=== PATIENT | female | born 1975 | race African-American/Black ===

== ENCOUNTER 2021-02-19 16:38 | Emergency (ER) | payer OTHER, SELFPAY ==
--- NOTE | ~2021-02-19 | CT_ITS ---
EXAMINATION: CT ABDOMEN AND PELVIS WITH CONTRAST CLINICAL INFORMATION: Left upper quadrant mass. COMPARISON: None TECHNIQUE: Multidetector volumetric images were obtained from the superior aspect of the liver through the pubic symphysis following administration 85 mL of Omnipaque 350 intravenous contrast. Sagittal and coronal reformatted images were obtained on the technologist's workstation. Oral Contrast: No. This CT examination was performed using dose optimization techniques as appropriate, variously including the following: *Automated exposure control *Adjustment of mA and/or kV according to patient size (this includes techniques or standardized protocols for targeted exams where dose is matched to indication/reason for exam; i.e. extremities or head) *Use of iterative reconstruction technique DLP: 566 mGy-cm FINDINGS: LUNG BASES: The visualized lung bases are unremarkable. LIVER, GALLBLADDER, AND BILIARY TREE: The liver is normal in size, shape, and attenuation. Subcentimeter right hepatic hypodensity measuring 0.4 cm, too small to characterize. No additional focal hepatic lesion or biliary ductal dilatation is present. The gallbladder is unremarkable with no evidence of radiopaque gallstones, gallbladder wall thickening, or obvious pericholecystic inflammatory changes. PANCREAS: Unremarkable. SPLEEN: Unremarkable. ADRENAL GLANDS: Unremarkable. KIDNEYS AND URETERS: The kidneys are normal in size, shape, and attenuation. No hydronephrosis, hydroureter, or calculi seen. No perinephric stranding. BLADDER: Unremarkable. GASTROINTESTINAL TRACT: No bowel wall thickening or associated inflammatory change. No small or large bowel obstruction. Unremarkable appendix. PERITONEAL CAVITY: No intra-abdominal free air or free fluid. No intra-abdominal mass or organized fluid collection/abscess formation. ABDOMINAL WALL: No significant abdominal wall hernia. No abdominal wall mass or fluid collection. LYMPH NODES: Normal. VASCULAR: Unremarkable. PELVIC VISCERA: Ovoid, enhancing focus within the right uterine fundus measuring up to 3.2 cm, likely representing an uterine fibroid. OSSEOUS STRUCTURES: Unremarkable. CT/CT abdomen pelvis w con IMPRESSION: 1. Probable right uterine fundal fibroid. 2. No additional intra-abdominal mass, lymphadenopathy, or ascites. Fleischner guidelines were followed.
[2021-02-19 16:51] VITALS: BP 125/78; PULSE 87; RESP 18; TEMP 36.7; O2SAT 100; BMI 28.3
--- NOTE | 2021-02-19 17:44 | ED_ITS ---
HPI - General Adult General Chief complaint: General Medical <Melanie Méndez NP - Last Filed: 02/19/21 18:49> Stated complaint: lump under left breast very painful <ABUNDIO Bernardo Last Filed: 02/19/21 18:49> Time Seen by Provider: 02/19/21 17:36 <Melanie Méndez NP - Last Filed: 02/19/21 18:49> Source: patient <Melanie Méndez NP - Last Filed: 02/19/21 18:49> Mode of arrival: ambulatory <ABUNDIO Bernardo Last Filed: 02/19/21 18:49> Limitations: no limitations <Melanie Méndez NP - Last Filed: 02/19/21 18:49> History of Present Illness HPI narrative: 45-year-old female with a history of hypertension here with complaints of swelling and a painful bump to her left upper abdomen noted yesterday while showering. She denies any injury or trauma. She denies any nausea, vomiting, diarrhea, constipation, fevers, chills, urinary symptoms. No recent weight loss or night sweats. She has been having some irregular menses and is followed by a consulting practice director <Melanie Méndez NP - Last Filed: 02/19/21 18:49> Related Data Home medications: Previous Rx's Medication Instructions Recorded cyclobenzaprine 10 mg tablet 10 mg PO BEDTIME PRN #7 tab 02/19/21 naproxen 500 mg tablet 500 mg PO BID PRN #14 tab 02/19/21 <Melanie Méndez NP - Last Filed: 02/19/21 18:49> Allergies/adverse reactions: Allergies Allergy/AdvReac Type Severity Reaction Status Date / Time No Known Allergies Allergy Verified 02/19/21 18:24 <ABUNDIO Bernardo Last Filed: 02/19/21 18:49> Review of Systems Review of Systems: Yes all other systems are reviewed and are negative <ABUNDIO Bernardo Last Filed: 02/19/21 18:49> Constitutional: Constitutional: Reports no additional constitutional complaints, Denies body ache(s), Denies chills, Denies fever(s), Denies headache(s) and Denies weakness <Melanie Méndez NP - Last Filed: 02/19/21 18:49> Eyes: Eyes: Reports no additional eye complaints and Denies change in vision <Melanie Méndez DISABILITY BENEFITS SPECIALIST - Last Filed: 02/19/21 18:49> ENT: Reports system reviewed and no additional complaints, except as documented, Denies dizziness, Denies headache(s), Denies nasal congestion, Denies nasal discharge and Denies neck pain <Melanie Méndez DISABILITY BENEFITS SPECIALIST - Last Filed: 02/19/21 18:49> Cardiovascular: Cardiovascular: Reports no additional cardiovascular complaints, Denies chest pain, Denies leg edema and Denies dyspnea <Melanie Méndez DISABILITY BENEFITS SPECIALIST - Last Filed: 02/19/21 18:49> Respiratory: Respiratory: Reports no additional respiratory complaints, Denies cough and Denies dyspnea <Melanie Méndez DISABILITY BENEFITS SPECIALIST - Last Filed: 02/19/21 18:49> Gastrointestinal: Gastrointestinal: Reports no additional gastrointestinal complaints, Denies abdominal pain, Denies diarrhea, Denies nausea and Denies vomiting <Melanie Méndez DISABILITY BENEFITS SPECIALIST - Last Filed: 02/19/21 18:49> Genitourinary: Genitourinary: Reports no additional female genitourinary complaints and Denies urinary incontinence <Melanie Méndez DISABILITY BENEFITS SPECIALIST - Last Filed: 02/19/21 18:49> Musculoskeletal: Musculoskeletal: Reports no additional musculoskeletal complaints, Denies back pain, Denies arthralgias, Denies joint swelling, Denies neck pain, Denies numbness and Denies tingling <Melanie Méndez DISABILITY BENEFITS SPECIALIST - Last Filed: 02/19/21 18:49> Integumentary/Breasts: Skin/Breast: Reports system reviewed and no additional complaints, except as docu, Reports swelling and Denies rash <Melanie Méndez DISABILITY BENEFITS SPECIALIST - Last Filed: 02/19/21 18:49> Neurologic: Reports system reviewed and no additional complaints, except as documented, Denies Abnormal speech present, Denies dizziness, Denies headache(s), Denies numbness, Denies tingling and Denies weakness <Melanie Méndez NP - Last Filed: 02/19/21 18:49> FOR[facility]LY [facility] Past Medical History Attestation statement: The following information was validated with the patient. <Melanie Méndez NP - Last Filed: 02/19/21 18:49> Source: old records reviewed and nursing notes reviewed <Melanie Méndez NP - Last Filed: 02/19/21 18:49> Social History Social History: Social History Advance Directives: No Advance Directives Information Provided: No <Melanie Méndez NP - Last Filed: 02/19/21 18:49> Physical Exam Vital Signs: Vital Signs: Last Vital Signs Temp 98.1 F 02/19/21 18:55 Pulse 78 02/19/21 18:55 Resp 18 02/19/21 18:55 BP 120/69 02/19/21 18:55 Pulse Ox 100 02/19/21 18:55 BMI result Body Mass Index 28.3 <Melanie Méndez NP - Last Filed: 02/19/21 18:49> Vital Signs: Last Vital Signs Temp 98.1 F 02/19/21 18:55 Pulse 78 02/19/21 18:55 Resp 18 02/19/21 18:55 BP 120/69 02/19/21 18:55 Pulse Ox 100 02/19/21 18:55 BMI result Body Mass Index 28.3 <TARAN Mera - Last Filed: 02/19/21 20:27> Const: General: cooperative, healthy appearing, comfortable and no acute distress <Melanie Méndez NP - Last Filed: 02/19/21 18:49> Orientation/consciousness: patient oriented x3 <Melanie Méndez NP - Last Filed: 02/19/21 18:49> Limitations: no limitations <Melanie Méndez NP - Last Filed: 02/19/21 18:49> HENMT: Head: Yes normal to inspection <Melanie Méndez NP - Last Filed: 02/19/21 18:49> Ears: hearing grossly normal bilaterally <Melanie Méndez NP - Last Filed: 02/19/21 18:49> General nose exam: Normal external nose present <Melanie Méndez NP - Last Filed: 02/19/21 18:49> Face and sinus: Yes normal facial exam <Melanie Méndez NP - Last Filed: 02/19/21 18:49> Mouth: Normal oral and palatal mucosa present <Melanie Méndez NP - Last F iled: 02/19/21 18:49> Throat: Yes posterior oropharynx normal <Melanie Méndez DISABILITY BENEFITS SPECIALIST - Last Filed: 02/19/21 18:49> Eyes: General: appearance normal, both eyes and all related structures <Melanie Méndez NP - Last Filed: 02/19/21 18:49> Pupils: Equal, round and reactive pupils present <Melanie Méndez DISABILITY BENEFITS SPECIALIST - Last Filed: 02/19/21 18:49> Neck: Neck: Yes normal visual inspection <Melanie Méndez NP - Last Filed: 02/19/21 18:49> Chest: Chest palpation & inspection: normal inspection of the chest <Melanie Méndez NP - Last Filed: 02/19/21 18:49> Resp: Effort & Inspection: normal respiratory effort <Melanie Méndez NP - Last Filed: 02/19/21 18:49> Auscultation: clear to auscultation bilaterally <Melanie Méndez NP - Last Filed: 02/19/21 18:49> Cardio: Rate: regular rate <Melanie Méndez DISABILITY BENEFITS SPECIALIST - Last Filed: 02/19/21 18:49> Rhythm: regular rhythm <Melanie Méndez NP - Last Filed: 02/19/21 18:49> Peripheral pulses: Peripheral pulses 2+ throughout <Melanie Méndez NP - Last Filed: 02/19/21 18:49> GI: Inspection: Yes normal to inspection <Melanie Méndez NP - Last Filed: 02/19/21 18:49> Palpation (GI): Soft to palpation and Tenderness to palpation present (GI) (Left upper quadrant mass with some tenderness on exam. No warmth or redness) <Melanie Méndez NP - Last Filed: 02/19/21 18:49> Auscultation: normal bowel sounds <Melanie Méndez NP - Last Filed: 02/19/21 18:49> Back/Spine/Pelvis: Thoracic/Lumbar Spine: thoracic and lumbar spine normal to inspection <Melanie Méndez NP - Last Filed: 02/19/21 18:49> Skin: General skin exam: no rashes or lesions noted <Melanie Méndez NP - Last Filed: 02/19/21 18:49> Neuro: General: patient oriented x3, no focal motor deficits and normal sensation to monofilament <Melanie Méndez NP - Last Filed: 02/19/21 18:49> Cranial nerves: Yes Equal, round and reactive pupils present <Melanie benitez NP - Last Filed: 02/19/21 18:49> Cognition (Neuro): normal cognition <Melanie Méndez NP - Last Filed: 02/19/21 18:49> Speech: No Abnormal speech present <Melanie Méndez NP - Last Filed: 02/19/21 18:49> Gait exam (Neuro): Normal gait present <Melanie Méndez NP - Last Filed: 02/19/21 18:49> Motor exam (neuro): 5/5 motor strength present throughout <Melanie Méndez NP - Last Filed: 02/19/21 18:49> Extrem: General: Yes normal to inspection <Melanie Méndez NP - Last Filed: 02/19/21 18:49> Course Course Course Narrative: 45-year-old female here with reports of left upper quadrant abdominal mass noted yesterday with some tenderness. No other complaints. Will check labs, UA, CT 1845-Sign out to Maggi CHIRINOS pending CT A/P <Melanie Méndez NP - Last Filed: 02/19/21 18:49> Reevaluation(s) Reevaluation #1: Labs shows slight leukocytosis 12.6, microcytic anemia noted, no electrolyte abnormalities, UA without infection. Patient's anemia is likely secondary to a bleeding fibroid which patient is currently getting treatment for. Patient is going to start taking her iron pills again, and she will follow-up with OBGYN. Leukocytosis likely secondary to reactivity, no medical or surgical emergent etiologies. CT of the abdomen and pelvis shows a probable right uterine fundal fibroid, with no additional intra-abdominal masses, lymphadenopathy or ascites. I have advised patient to follow-up with her PCP for further evaluation of this lump. Patient is safe for discharge home with PCP follow-up. <TARAN Mera - Last Filed: 02/19/21 20:27> Time: 20:14 <TARAN Mera - Last Filed: 02/19/21 20:27> Medical Decision Making Medical Records Medical records reviewed: Yes I reviewed the patient's medical records. <Melanie Méndez NP - Last Filed: 02/19/21 18:49> Lab Data Lab results reviewed: Yes I reviewed the patient's lab results. <Melanie Méndez NP - Last Filed: 02/19/21 18:49> Result diagrams: : 02/19/21 18:03 02/19/21 18:03 <Melanie Méndez NP - Last Filed: 02/19/21 18:49> Labs: Lab Results 02/19/21 02/19/21 02/19/21 Range/Units 18:03 18:03 18:04 WBC 12.6 H (4.8-10.8) X10*3/uL RBC 4.25 (4.20-5.50) X10*6/uL Hgb 10.7 L (12.0-16.0) g/dl Hct 33.5 L (37.0-47.0) % MCV 78.8 L (80.0-98.0) fL MCH 25.2 L (27.0-33.0) pg MCHC 31.9 (31.0-35.0) g/dl RDW 15.3 (11.0-16.0) % Plt Count 372 (160-400) X10*3/uL MPV 10.1 (9.4-12.3) fL Immature Gran % (Auto) 0.3 (0.0-0.4) % Neut % (Auto) 55.0 (45-73) % Lymph % (Auto) 33.0 (20-40) % [place] % (Auto) 9.2 (2-11) % Eos % (Auto) 2.1 (0-4) % Baso % (Auto) 0.4 (0-2) % Lymph # (Auto) 4.1 (1.2-4.9) X10*3/uL [place] # (Auto) 1.2 (0.1-1.2) X10*3/uL Eos # (Auto) 0.3 (0.0-0.4) X10*3/uL Baso # (Auto) 0.1 (0.0-0.2) X10*3/uL Abs Immat Gran (auto) 0.04 H (0.00-0.03) X10*3/uL Absolute Neuts (auto) 6.9 (2.0-8.3) x10*3/uL Absolute Nucleated RBC 0.000 (0.0-0.012) X10*3/uL Nucleated RBC % (auto) 0.0 (0.0-0.2) /100WBC Sodium 141 (135-145) mmol/L Potassium 3.7 (3.3-5.1) mmol/L Chloride 107 (96-108) mmol/L Carbon Dioxide 26 (22-29) mmol/L Anion Gap 12 (12-20) BUN 12 (9-16) mg/dL Creatinine 0.81 (0.5-1.4) mg/dL Estim Creat Clear Calc 91.9 Estimated GFR > 60 Random Glucose 79 (60-115) mg/dL Calcium 9.4 (8.4-10.2) mg/dL Total Bilirubin 0.2 (0.0-1.0) mg/dL Direct Bilirubin < 0.2 (0.0-0.5) mg/dL AST 21 (5-31) U/L ALT 23 (0-31) U/L Alkaline Phosphatase 80 (39-117) U/L Total Protein 6.8 (6.5-8.0) g/dL Albumin 3.9 (3.5-5.0) g/dL Lipase 34 (8-78) U/L Urine Color YELLOW Urine Appearance CLEAR Urine pH 6.0 (5.0-8.0) Ur Specific [place] 1.020 (1.005-1.025) Urine Protein 1+ H (NEG-TRACE) MG/DL Urine Glucose (UA) NEG (NEG) MG/DL Urine Ketones NEG (NEG) MG/DL Urine Blood TRACE (NEG) Urine Nitrite NEG (NEG) Ur Leukocyte Esterase NEG (NEG) Urine RBC 0-2 (0) /HPF Urine WBC 0 (0-4) /HPF Ur Squamous Epith Cells 1+ /LPF Urine Bacteria TRACE /LPF Urine Mucus 1+ /LPF Urine Test (NEGATIVE) 02/19/21 Range/Units 18:04 WBC (4.8-10.8) X10*3/uL RBC (4.20-5.50) X10*6/uL Hgb (12.0-16.0) g/dl Hct (37.0-47.0) % MCV (80.0-98.0) fL MCH (27.0-33.0) pg MCHC (31.0-35.0) g/dl RDW (11.0-16.0) % Plt Count (160-400) X10*3/uL MPV (9.4-12.3) fL Immature Gran % (Auto) (0.0-0.4) % Neut % (Auto) (45-73) % Lymph % (Auto) (20-40) % [place] % (Auto) (2-11) % Eos % (Auto) (0-4) % Baso % (Auto) (0-2) % Lymph # (Auto) (1.2-4.9) X10*3/uL [place] # (Auto) (0.1-1.2) X10*3/uL Eos # (Auto) (0.0-0.4) X10*3/uL Baso # (Auto) (0.0-0.2) X10*3/uL Abs Immat Gran (auto) (0.00-0.03) X10*3/uL Absolute Neuts (auto) (2.0-8.3) x10*3/uL Absolute Nucleated RBC (0.0-0.012) X10*3/uL Nucleated RBC % (auto) (0.0-0.2) /100WBC Sodium (135-145) mmol/L Potassium (3.3-5.1) mmol/L Chloride (96-108) mmol/L Carbon Dioxide (22-29) mmol/L Anion Gap (12-20) BUN (9-16) mg/dL Creatinine (0.5-1.4) mg/dL Estim Creat Clear Calc Estimated GFR Random Glucose (60-115) mg/dL Calcium (8.4-10.2) mg/dL Total Bilirubin (0.0-1.0) mg/dL Direct Bilirubin (0.0-0.5) mg/dL AST (5-31) U/L ALT (0-31) U/L Alkaline Phosphatase (39-117) U/L Total Protein (6.5-8.0) g/dL Albumin (3.5-5.0) g/dL Lipase (8-78) U/L Urine Color Urine Appearance Urine pH (5.0-8.0) Ur Specific [place] (1.005-1.025) Urine Protein (NEG-TRACE) MG/DL Urine Glucose (UA) (NEG) MG/DL Urine Ketones (NEG) MG/DL Urine Blood (NEG) Urine Nitrite (NEG) Ur Leukocyte Esterase (NEG) Urine RBC (0) /HPF Urine WBC (0-4) /HPF Ur Squamous Epith Cells /LPF Urine Bacteria /LPF Urine Mucus /LPF Urine Test NEGATIVE (NEGATIVE) <Melanie Méndez NP - Last Filed: 02/19/21 18:49> Lab Results 02/19/21 02/19/21 02/19/21 Range/Units 18:03 18:03 18:04 WBC 12.6 H (4.8-10.8) X10*3/uL RBC 4.25 (4.20-5.50) X10*6/uL Hgb 10.7 L (12.0-16.0) g/dl Hct 33.5 L (37.0-47.0) % MCV 78.8 L (80.0-98.0) fL MCH 25.2 L (27.0-33.0) pg MCHC 31.9 (31.0-35.0) g/dl RDW 15.3 (11.0-16.0) % Plt Count 372 (160-400) X10*3/uL MPV 10.1 (9.4-12.3) fL Immature Gran % (Auto) 0.3 (0.0-0.4) % Neut % (Auto) 55.0 (45-73) % Lymph % (Auto) 33.0 (20-40) % [place] % (Auto) 9.2 (2-11) % Eos % (Auto) 2.1 (0-4) % Baso % (Auto) 0.4 (0-2) % Lymph # (Auto) 4.1 (1.2-4.9) X10*3/uL [place] # (Auto) 1.2 (0.1-1.2) X10*3/uL Eos # (Auto) 0.3 (0.0-0.4) X10*3/uL Baso # (Auto) 0.1 (0.0-0.2) X10*3/uL Abs Immat Gran (auto) 0.04 H (0.00-0.03) X10*3/uL Absolute Neuts (auto) 6.9 (2.0-8.3) x10*3/uL Absolute Nucleated RBC 0.000 (0.0-0.012) X10*3/uL Nucleated RBC % (auto) 0.0 (0.0-0.2) /100WBC Sodium 141 (135-145) mmol/L Potassium 3.7 (3.3-5.1) mmol/L Chloride 107 (96-108) mmol/L Carbon Dioxide 26 (22-29) mmol/L Anion Gap 12 (12-20) BUN 12 (9-16) mg/dL Creatinine 0.81 (0.5-1.4) mg/dL Estim Creat Clear Calc 91.9 Estimated GFR > 60 Random Glucose 79 (60-115) mg/dL Calcium 9.4 (8.4-10.2) mg/dL Total Bilirubin 0.2 (0.0-1.0) mg/dL Direct Bilirubin < 0.2 (0.0-0.5) mg/dL AST 21 (5-31) U/L ALT 23 (0-31) U/L Alkaline Phosphatase 80 (39-117) U/L Total Protein 6.8 (6.5-8.0) g/dL Albumin 3.9 (3.5-5.0) g/dL Lipase 34 (8-78) U/L Urine Color YELLOW Urine Appearance CLEAR Urine pH 6.0 (5.0-8.0) Ur Specific [place] 1.020 (1.005-1.025) Urine Protein 1+ H (NEG-TRACE) MG/DL Urine Glucose (UA) NEG (NEG) MG/DL Urine Ketones NEG (NEG) MG/DL Urine Blood TRACE (NEG) Urine Nitrite NEG (NEG) Ur Leukocyte Esterase NEG (NEG) Urine RBC 0-2 (0) /HPF Urine WBC 0 (0-4) /HPF Ur Squamous Epith Cells 1+ /LPF Urine Bacteria TRACE /LPF Urine Mucus 1+ /LPF Urine Test (NEGATIVE) 02/19/21 Range/Units 18:04 WBC (4.8-10.8) X10*3/uL RBC (4.20-5.50) X10*6/uL Hgb (12.0-16.0) g/dl Hct (37.0-47.0) % MCV (80.0-98.0) fL MCH (27.0-33.0) pg MCHC (31.0-35.0) g/dl RDW (11.0-16.0) % Plt Count (160-400) X10*3/uL MPV (9.4-12.3) fL Immature Gran % (Auto) (0.0-0.4) % Neut % (Auto) (45-73) % Lymph % (Auto) (20-40) % [place] % (Auto) (2-11) % Eos % (Auto) (0-4) % Baso % (Auto) (0-2) % Lymph # (Auto) (1.2-4.9) X10*3/uL [place] # (Auto) (0.1-1.2) X10*3/uL Eos # (Auto) (0.0-0.4) X10*3/uL Baso # (Auto) (0.0-0.2) X10*3/uL Abs Immat Gran (auto) (0.00-0.03) X10*3/uL Absolute Neuts (auto) (2.0-8.3) x10*3/uL Absolute Nucleated RBC (0.0-0.012) X10*3/uL Nucleated RBC % (auto) (0.0-0.2) /100WBC Sodium (135-145) mmol/L Potassium (3.3-5.1) mmol/L Chloride (96-108) mmol/L Carbon Dioxide (22-29) mmol/L Anion Gap (12-20) BUN (9-16) mg/dL Creatinine (0.5-1.4) mg/dL Estim Creat Clear Calc Estimated GFR Random Glucose (60-115) mg/dL Calcium (8.4-10.2) mg/dL Total Bilirubin (0.0-1.0) mg/dL Direct Bilirubin (0.0-0.5) mg/dL AST (5-31) U/L ALT (0-31) U/L Alkaline Phosphatase (39-117) U/L Total Protein (6.5-8.0) g/dL Albumin (3.5-5.0) g/dL Lipase (8-78) U/L Urine Color Urine Appearance Urine pH (5.0-8.0) Ur Specific [place] (1.005-1.025) Urine Protein (NEG-TRACE) MG/DL Urine Glucose (UA) (NEG) MG/DL Urine Ketones (NEG) MG/DL Urine Blood (NEG) Urine Nitrite (NEG) Ur Leukocyte Esterase (NEG) Urine RBC (0) /HPF Urine WBC (0-4) /HPF Ur Squamous Epith Cells /LPF Urine Bacteria /LPF Urine Mucus /LPF Urine Test NEGATIVE (NEGATIVE) <TARAN Mera - Last Filed: 02/19/21 20:27> Critical Care Time Critical Care Time Critical Care Time: No <TARAN Mera - Last Filed: 02/19/21 20:27> Discharge Plan Discharge Clinical Impression: Abdominal swelling, Abdominal lump <Melanie Méndez NP - Last Filed: 02/19/21 18:49> Patient Disposition: Home, Self-Care <Melanie Méndez NP - Last Filed: 02/19/21 18:49> Additional Instructions: Take your medications as prescribed. Follow-up with your primary care provider this week. You will likely require further evaluation Return to the emergency department with new or worsening symptoms. In case of emergency call 911 <Melanie Méndez NP - Last Filed: 02/19/21 18:49> Prescriptions: New cyclobenzaprine 10 mg tablet 10 mg PO BEDTIME PRN (Reason: muscle spasm) Qty: 7 RF: 0 naproxen 500 mg tablet 500 mg PO BID PRN (Reason: pain) Qty: 14 RF: 0 <Melanie Méndez NP - Last Filed: 02/19/21 18:49> Referrals: Maximilian King MD [Primary Care Provider] - 2 days Panfilo Grayson MD [Physician] - 2 weeks <Melanie Méndez NP - Last Filed: 02/19/21 18:49> Stand Alone Forms: Work/School Release <Melanie Méndez NP - Last Filed: 02/19/21 18:49>
[2021-02-19 18:12] LABS: MANUAL DIFF FLAG NO
[2021-02-19 18:15] LABS: Appearance Urine CLEAR; Color Urine YELLOW; Glucose Urine UA NEG (NEG); Leukocyte Esterase Urine NEG (NEG); Nitrite Urine NEG (NEG); UACC Culture Trigger NO; Urine Blood TRACE (NEG); Urine Ketones NEG (NEG); Urine Protein 1+ MG/DL (NEG-TRACE)
[2021-02-19 18:17] LABS: UPreg QC Valid YES; Urine Pregnancy NEGATIVE (NEGATIVE)
[2021-02-19 18:19] LABS: Basophils Absolute Auto 0.1 X10*3/uL (0.0-0.2); Basophils Percent Auto 0.4 % (0-2); Eosinophils Absolute Auto 0.3 X10*3/uL (0.0-0.4); Eosinophils Percent Auto 2.1 % (0-4); Hematocrit 33.5 % (37.0-47.0); Hemoglobin 10.7 g/dl (12.0-16.0); Imm Gran Abs Auto 0.04 X10*3/uL (0.00-0.03); Imm Gran Pct Auto 0.3 % (0.0-0.4); Lymphocytes Absolute Auto 4.1 X10*3/uL (1.2-4.9); Mean Corpuscular HGB Conc 31.9 g/dl (31.0-35.0); Mean Corpuscular Hemoglobin 25.2 pg (27.0-33.0); Mean Corpuscular Volume 78.8 fL (80.0-98.0); Mean Platelet Volume 10.1 fL (9.4-12.3); Monocytes Absolute Auto 1.2 X10*3/uL (0.1-1.2); Monocytes Percent Auto 9.2 % (2-11); Neutrophils Absolute Auto 6.9 x10*3/uL (2.0-8.3); Platelet Count 372 X10*3/uL (160-400); Red Blood Count 4.25 X10*6/uL (4.20-5.50); Red Cell Distribution Width 15.3 % (11.0-16.0); White Blood Count 12.6 X10*3/uL (4.8-10.8)
[2021-02-19 18:23] LABS: Mucus Urine 1+ /LPF; Squamous Epithelial Cell Urine 1+ /LPF
[2021-02-19 18:24] LABS: Bacteria Urine TRACE /LPF; RBC Urine 0-2 /HPF (0); WBC Urine 0 /HPF (0-4)
[2021-02-19 18:28] LABS: Alanine Aminotransferase 23 U/L (0-31); Albumin Level 3.9 g/dL (3.5-5.0); Alkaline Phosphatase 80 U/L (39-117); Anion Gap 12 (12-20); Aspartate Amino Transferase 21 U/L (5-31); Bilirubin Direct < 0.2 mg/dL (0.0-0.5); Bilirubin Total 0.2 mg/dL (0.0-1.0); Blood Urea Nitrogen 12 mg/dL (9-16); Calcium 9.4 mg/dL (8.4-10.2); Carbon Dioxide 26 mmol/L (22-29); Chloride 107 mmol/L (96-108); Creatinine Clr Calc Pharmacy 91.9; Estimated Glomerular Filt Rate > 60; Glucose Random 79 mg/dL (60-115); Lipase 34 U/L (8-78); Potassium 3.7 mmol/L (3.3-5.1); Sodium 141 mmol/L (135-145); Total Protein 6.8 g/dL (6.5-8.0)
[2021-02-19] MEDS: iohexoL 350 MG/ML 100 ML INFUS..BTL IV (18:48)
[2021-02-19 18:55] VITALS: BP 120/69; PULSE 78; RESP 18; TEMP 36.7; O2SAT 100
== END 2021-02-19 20:39 | disposition home or self-care (01) ==
PROVIDERS: Nurse Practitioner Family; Emergency Provider Internal Medicine; PCP Internal Medicine
DX: R19.02 Left upper quadrant abdominal swelling, mass and lump (principal); R10.12 Left upper quadrant pain; I10 Essential (primary) hypertension
CPT/HCPCS: 36415; 74177; 80048; 80076; 81001; 81025; 83690; 85025; 99284; Q9967

== ENCOUNTER 2022-06-10 12:26 | Emergency (ER) | payer SELFPAY ==
--- NOTE | ~2022-06-10 | XR_ITS ---
EXAMINATION: Chest and right shoulder. CLINICAL INDICATION: Right upper chest pain. TECHNIQUE: Chest 2 views and right shoulder 3 views. FINDINGS: CHEST: CHEST: Both lungs are fairly well-expanded and clear. The heart size and pulmonary vascularity is normal. No gross bony abnormality seen. RIGHT SHOULDER: The glenohumeral and AC joint space is maintained normal. No visible acute fracture, dislocation or subluxation seen. The soft tissues are normal. XR/XR shoulder RT min 2V IMPRESSION: Unremarkable chest exam. Unremarkable right shoulder exam
--- NOTE | ~2022-06-10 | XR_ITS ---
EXAMINATION: Chest and right shoulder. CLINICAL INDICATION: Right upper chest pain. TECHNIQUE: Chest 2 views and right shoulder 3 views. FINDINGS: CHEST: CHEST: Both lungs are fairly well-expanded and clear. The heart size and pulmonary vascularity is normal. No gross bony abnormality seen. RIGHT SHOULDER: The glenohumeral and AC joint space is maintained normal. No visible acute fracture, dislocation or subluxation seen. The soft tissues are normal. XR/XR chest 2V IMPRESSION: Unremarkable chest exam. Unremarkable right shoulder exam
[2022-06-10 12:27] VITALS: BP 159/92; PULSE 100; RESP 18; TEMP 36.9; O2SAT 99; BMI 30.5
--- NOTE | 2022-06-10 12:28 | ED.EXTPRO ---
HPI - Extremity Problem General Chief complaint: Extremity Problem <TARAN Mera - Last Filed: 06/10/22 12:30> Stated complaint: R shoulder pain <TARAN Mera - Last Filed: 06/10/22 12:30> Time Seen by Provider: 06/10/22 12:30 <TARAN Mera - Last Filed: 06/10/22 12:30> Source: patient <Brock Hernandez MD - Last Filed: 06/10/22 13:59> Mode of arrival: ambulatory <Brock Hernandez MD - Last Filed: 06/10/22 13:59> Limitations: no limitations <Brock Hernandez MD - Last Filed: 06/10/22 13:59> History of Present Illness HPI Narrative: 46 years old female presented to the ED complaining of right shoulder pain denies any trauma the pain is been going on for about 3 days , the pain is reproducible with movement of the right shoulder. Denies any chest pain or shortness of breath <Brock Hernandez MD - Last Filed: 06/10/22 13:59> MD Complaint: extremity pain <Brock Hernandez MD - Last Filed: 06/10/22 13:59> Onset (ago): day(s) (3) <Brock Hernandez MD - Last Filed: 06/10/22 13:59> Pain Consistency: constant <Brock Hernandez MD - Last Filed: 06/10/22 13:59> Location: right and other (shoulder) <Brock Hernandez MD - Last Filed: 06/10/22 13:59> Severity scale (1-10): 5 <Brock Hernandez MD - Last Filed: 06/10/22 13:59> Quality: aching <Brock Hernandez MD - Last Filed: 06/10/22 13:59> Radiation: none <Brock Hernandez MD - Last Filed: 06/10/22 13:59> Relieving factors: rest <Brock Hernandez MD - Last Filed: 06/10/22 13:59> Exacerbating factors: range of motion <Brock Hernandez MD - Last Filed: 06/10/22 13:59> Associated symptoms: denies other symptoms <Brock Hernandez MD - Last Filed: 06/10/22 13:59> Related Data Home medications: Previous Rx's Medication Instructions Recorded cyclobenzaprine 10 mg tablet 10 mg PO BEDTIME PRN muscle spasm 02/19/21 #7 tabs naproxen 500 mg tablet 500 mg PO BID PRN pain #14 tabs 02/19/21 oxycodone 5 mg capsule 5 mg PO Q8H PRN pain #12 caps 06/10/22 <TARAN Mera - Last Filed: 06/10/22 12:30> Allergies/Adverse reactions: Allergies Allergy/AdvReac Type Severity Reaction Status Date / Time No Known Allergies Allergy Verified 02/19/21 18:24 <TARAN Mera - Last Filed: 06/10/22 12:30> Review of Systems Constitutional: Constitutional: Reports no additional constitutional complaints <Brock Hernandez MD - Last Filed: 06/10/22 13:59> Cardiovascular: Cardiovascular: Reports no additional cardiovascular complaints <Brock Hernandez MD - Last Filed: 06/10/22 13:59> Respiratory: Respiratory: Reports no additional respiratory complaints <Brock Hernandez MD - Last Filed: 06/10/22 13:59> [facility] Past Medical History [facility] Narrative: denies <Brock Hernandez MD - Last Filed: 06/10/22 13:59> Social History Social History: Social History Advance Directives: No Advance Directives Information Provided: No <TARAN Mera - Last Filed: 06/10/22 12:30> Physical Exam Vital Signs: Vital Signs: Last Vital Signs Temp 98.4 F 06/10/22 12:27 Pulse 100 06/10/22 12:27 Resp 18 06/10/22 12:27 BP 159/92 H 06/10/22 12:27 Pulse Ox 99 06/10/22 12:27 O2 Del Method Room Air 06/10/22 12:27 BMI result Body Mass Index 30.5 <TARAN Mera - Last Filed: 06/10/22 12:30> Vital Signs: Last Vital Signs Temp 98.4 F 06/10/22 12:27 Pulse 100 06/10/22 12:27 Resp 18 06/10/22 12:27 BP 159/92 H 06/10/22 12:27 Pulse Ox 99 06/10/22 12:27 O2 Del Method Room Air 06/10/22 12:27 BMI result Body Mass Index 30.5 <Brock Hernandez MD - Last Filed: 06/10/22 13:59> Const: General: cooperative, healthy appearing, comfortable, no acute distress and well developed <Brock Hernandez MD - Last Filed: 06/10/22 13:59> Nutritional Appearance: average body habitus <Brock Hernandez MD - Last Filed: 06/10/22 13:59> Orientation/consciousness: patient oriented x3 <Brock Hernandez MD - Last Filed: 06/10/22 13:59> HEENT: Head: Yes normal to inspection <Brock Hernandez MD - Last Filed: 06/10/22 13:59> Face and sinus: Yes normal facial exam <Brock Hernandez MD - Last Filed: 06/10/22 13:59> Throat: Yes posterior oropharynx normal <Brock Hernandez MD - Last Filed: 06/10/22 13:59> Neck: Neck: Yes normal visual inspection and Yes full ROM <Brock Hernandez MD - Last Filed: 06/10/22 13:59> Chest: Chest palpation & inspection: normal inspection of the chest <Brock Hernandez MD - Last Filed: 06/10/22 13:59> Resp: Effort & Inspection: normal respiratory effort and able to speak in complete sentences <Brock Hernandez MD - Last Filed: 06/10/22 13:59> Cardio: Jugular venous distension: no JVD <Brock Hernandez MD - Last Filed: 06/10/22 13:59> Rate: regular rate <Brock Hernandez MD - Last Filed: 06/10/22 13:59> Rhythm: regular rhythm <Brock Hernandez MD - Last Filed: 06/10/22 13:59> GI: Inspection: Yes normal to inspection <Brock Hernandez MD - Last Filed: 06/10/22 13:59> Palpation (GI): Soft to palpation, not firm, nontender and no guarding <Brock Hernandez MD - Last Filed: 06/10/22 13:59> Skin: General skin exam: no rashes or lesions noted and elasticity normal <Brock Hernandez MD - Last Filed: 06/10/22 13:59> Lesions: no lesions <Brock Hernandez MD - Last Filed: 06/10/22 13:59> Rashes: no rashes <Brock Hernandez MD - Last Filed: 06/10/22 13:59> Neuro: General: patient oriented x3 <Brock Hernandez MD - Last Filed: 06/10/22 13:59> Extrem: Other: Tenderness in the right shoulder she has pain the limitation of the range of motion no deformity seen. <Brock Hernandez MD - Last Filed: 06/10/22 13:59> Course Course Course Narrative: This is an RME: Additional HPI, ROS, PE not included below will be deferred to primary provider. 46 year old female presents w/ severe atraumatic R shoulder pain. Reports it started as an aching pain and now is unable to lift it due to pain. Denies numbness and tingling. Denies fevers and chills. PE- NV intact, unwilling to lift right shoulder because it hurts Plan- imaging. Toradol orderd <TARAN Mera - Last Filed: 06/10/22 12:30> Reevaluation(s) Reevaluation #1: xray negative ekg ok will d/c <Brock Hernandez MD - Last Filed: 06/10/22 13:59> Time: 13:57 <Brock Hernandez MD - Last Filed: 06/10/22 13:59> Medications Administered Discontinued Medications Generic Name Dose Route Start Last Admin Trade Name Freq PRN Reason Stop Dose Admin Ketorolac Tromethamine 30 mg 06/10/22 12:30 06/10/22 13:11 Ketorolac Tromethamine 15 Mg/Ml Vial IM 06/10/22 12:31 30 mg ONCE ONE Administration <TARAN Mera - Last Filed: 06/10/22 12:30> Medications Administered Discontinued Medications Generic Name Dose Route Start Last Admin Trade Name Adarsh PRN Reason Stop Dose Admin Ketorolac Tromethamine 30 mg 06/10/22 12:30 06/10/22 13:11 Ketorolac Tromethamine 15 Mg/Ml Vial IM 06/10/22 12:31 30 mg ONCE ONE Administration <Brock Hernandez MD - Last Filed: 06/10/22 13:59> Medical Decision Making Medical Decision Making MDM Narrative: Patient presents with right shoulder pain which is reproducible with movement will get x-ray/EKG <Brock Hernandez MD - Last Filed: 06/10/22 13:59> Differential Diagnosis Differential Diagnoses: The differential diagnosis associated with the presentation includes <Brock Hernandez MD - Last Filed: 06/10/22 13:59> Tendinitis/cuff tear <Brock Hernandez MD - Last Filed: 06/10/22 13:59> Independent Interpretation I performed an independent interpretation of an: EKG (NSR 89 no ischemia) and Plain X-Ray <Brock Hernandez MD - Last Filed: 06/10/22 13:59> Radiology Impression Discussion of test interpretation with radiology: I have reviewed the radiologist's reading. <Brock Hernandez MD - Last Filed: 06/10/22 13:59> Radiologist Impression: CLINICAL INDICATION: Right upper chest pain. TECHNIQUE: Chest 2 views and right shoulder 3 views. FINDINGS: CHEST: CHEST: Both lungs are fairly well-expanded and clear. The heart size and pulmonary vascularity is normal. No gross bony abnormality seen. RIGHT SHOULDER: The glenohumeral and AC joint space is maintained normal. No visible acute fracture, dislocation or subluxation seen. The soft tissues are normal. XR/XR shoulder RT min 2V IMPRESSION: Unremarkable chest exam. ? Unremarkable right shoulder exam Dictated By: Kamran Corona MD Signed By: <Electronically signed by Kamran Corona MD in [place]> 06/10/22 1337 <Brock Hernandez MD - Last Filed: 06/10/22 13:59> Discharge Plan Discharge Clinical Impression: Right shoulder pain <TARAN Mera - Last Filed: 06/10/22 12:30> Patient Disposition: Home, Self-Care <TARAN Mera - Last Filed: 06/10/22 12:30> Instructions: Shoulder Pain (ED) <TARAN Mera - Last Filed: 06/10/22 12:30> Prescriptions: New oxycodone 5 mg capsule 5 mg PO Q8H PRN (Reason: pain) Qty: 12 0RF Rx Instructions: Partial Fill upon patient request. No Action cyclobenzaprine 10 mg tablet 10 mg PO BEDTIME PRN (Reason: muscle spasm) Qty: 7 0RF naproxen 500 mg tablet 500 mg PO BID PRN (Reason: pain) Qty: 14 0RF Rx Instructions: Take with food <TARAN Mera - Last Filed: 06/10/22 12:30> Referrals: Clay Alston MD [Physician] - 3 days <TARAN Mera - Last Filed: 06/10/22 12:30> Stand Alone Forms: Work/School Release <TARAN Mera Last Filed: 06/10/22 12:30>
--- NOTE | 2022-06-10 12:55 | ECG_ITS ---
Test Reason : RIGHT SHOULDER PAIN Blood Pressure : / mmHG Vent. Rate : 089 BPM Atrial Rate : 089 BPM P-R Int : 178 ms QRS Dur : 084 ms QT Int : 358 ms P-R-T Axes : 054 040 032 degrees QTc Int : 435 ms Normal sinus rhythm Normal ECG When compared with ECG of 20-AUG-2006 08:06, No significant change was found Referred By: Brock Hernandez Electronically Signed By:Santiago Melendez
--- OUTSIDE RECORDS SUMMARY | 2022-06-10 13:02 | XMS_ITS | Continuity of Care Document ---
Author Name Unknown Organization [facility] Address [address] [place] [address] [address] [place] [address]- Care Team Providers Care Brinell Tester Name Role Phone Fernando STRICKLAND, Maximilian Greenfield Primary Care Physician [place] [facility] [place] [facility] [address] [place] [address]- [facility] Attending Physician: Kaylene Purvis Referring Physician: Fabian STRICKLAND, Maximilian Hernandez Allergies, Adverse Reactions, Alerts Substance Reaction Severity Status NKA Active Medications Amlodipine By Mouth, Daily, 0 Refills, Maintenance, 06/18/15 18:32:45 Start Date: 06/18/15 Status: Ordered amLODIPine 5 mg oral tablet 5 mg, 1, tablet, By Mouth, Daily, # 30 tablet, Refills 0, Maintenance, 06/18/15 18:33:12 Start Date: 06/18/15 Status: Ordered Azithromycin 5 Day Dose Pack 250 mg oral tablet 1 pack/packet, By Mouth, Once, # 6 tablet, 0 Refills, Soft Stop, Tablet, 1 pack/packet By Mouth Once Start Date: 02/17/13 Status: Ordered lisinopril 20 mg oral tablet 20 mg, 1, tablet, By Mouth, Daily, # 30 tablet, Refills 0, Maintenance, 06/18/15 18:32:29 Start Date: 06/18/15 Status: Ordered Problem List Condition Effective Dates Status Health Status Inform ant Breast mass, right(Confirmed) 08/16/10 Active
--- OUTSIDE RECORDS SUMMARY | 2022-06-10 13:02 | XMS_ITS | Continuity of Care Document ---
Author Name Unknown Organization [facility] Address [address] [place] [address] [address] [place] [address]- Care Team Providers Care Accident Investigator Name Role Phone Fernando STRICKLAND, Maximilian Greenfield Primary Care Physician Encounter [facility] Date(s): 05/21/19 - 05/31/19 [facility] [address] [place] [address]- [facility] Attending Physician: Mar Lopez Admitting Physician: Mar Lopez Referring Physician: Mar Lopez Allergies, Adverse Reactions, Alerts Substance Reaction Severity [...]
[2022-06-10] MEDS: Ketorolac Tromethamine 15 MG/ML VIAL 30 MG IM (13:11)
== END 2022-06-10 14:34 | disposition home or self-care (01) ==
PROVIDERS: Emergency Provider Emergency Medicine
DX: M25.511 Pain in right shoulder (principal); R07.89 Other chest pain; Z79.899 Other long term (current) drug therapy
CPT/HCPCS: 71046; 73030; 93005; 99284; J1885

== ENCOUNTER 2023-02-21 04:46 | Emergency (ER) | payer BC, SELFPAY ==
--- NOTE | ~2023-02-21 | XR_ITS ---
EXAMINATION: XR SACRUM AND COCCYX CLINICAL INFORMATION: Atraumatic pain COMPARISON: CT abdomen pelvis February 19, 2021 TECHNIQUE: 2 views of the sacrum and 2 views of the coccyx were obtained. FINDINGS: No gross fracture of the sacrum or coccyx. Sacroiliac joints are symmetric. Mild degenerative changes of the visualized lower lumbar spine. Small pelvic calcifications are likely vascular in nature. XR/XR sacrum coccyx min 2V IMPRESSION: No gross fracture of the sacrum or coccyx.
[2023-02-21 04:48] VITALS: BP 155/99; PULSE 89; RESP 18; TEMP 36.9; O2SAT 100; BMI 31.9
[2023-02-21 05:08] LABS: Basophils Absolute Auto 0.1 X10*3/uL (0.0-0.2); Basophils Percent Auto 0.4 % (0-2); Eosinophils Absolute Auto 0.2 X10*3/uL (0.0-0.4); Eosinophils Percent Auto 1.8 % (0-4); Hematocrit 38.9 % (37.0-47.0); Hemoglobin 12.8 g/dl (12.0-16.0); Imm Gran Abs Auto 0.02 X10*3/uL (0.00-0.03); Imm Gran Pct Auto 0.2 % (0.0-0.4); Lymphocytes Percent Auto 46.4 % (20-40); MANUAL DIFF FLAG SCAN; Mean Corpuscular HGB Conc 32.9 g/dl (31.0-35.0); Mean Corpuscular Hemoglobin 27.1 pg (27.0-33.0); Mean Corpuscular Volume 82.4 fL (80.0-98.0); Mean Platelet Volume 10.1 fL (9.4-12.3); Monocytes Absolute Auto 0.9 X10*3/uL (0.1-1.2); Neutrophils Absolute Auto 5.8 x10*3/uL (2.0-8.3); Neutrophils Percent Auto 44.2 % (45-73); Platelet Count 310 X10*3/uL (160-400); Red Blood Count 4.72 X10*6/uL (4.20-5.50); Red Cell Distribution Width 14.3 % (11.0-16.0); SCAN SMEAR FLAG 1
[2023-02-21 05:23] LABS: Alanine Aminotransferase 19 U/L (0-31); Albumin Level 4.2 g/dL (3.5-5.0); Alkaline Phosphatase 85 U/L (39-117); Anion Gap 13 (12-20); Aspartate Amino Transferase 17 U/L (5-31); Bilirubin Total 0.1 mg/dL (0.0-1.0); Blood Urea Nitrogen 12 mg/dL (9-16); Calcium 9.1 mg/dL (8.4-10.2); Carbon Dioxide 24 mmol/L (22-29); Chloride 107 mmol/L (96-108); Creatinine Clr Calc Pharmacy 103.2; Estimated Glomerular Filt Rate > 60; Glucose Random 101 mg/dL (60-115); Potassium 3.9 mmol/L (3.3-5.1); Sodium 140 mmol/L (135-145); Total Protein 7.5 g/dL (6.5-8.0)
[2023-02-21 05:31] LABS: SLIDE REVIEW VERIFIED
--- NOTE | 2023-02-21 05:58 | PC.NURSE ---
pt assessed, reported lower back pain no injury, hx of sciatic
[2023-02-21 06:10] LABS: Appearance Urine Clear; Color Urine Yellow; Glucose Urine UA Negative (Negative); Leukocyte Esterase Urine Negative (Negative); Nitrite Urine Negative (Negative); PH 6.5 (5.0-9.0); UMIC TRIGGER UACC YES; Urine Blood Trace (Negative); Urine Ketones Negative (Negative); Urine Protein 100 (2+) mg/dL (Neg-Trace)
[2023-02-21 06:13] LABS: Bacteria Urine None Seen (None Seen); Hyaline Casts Urine 0-2 /LPF (0-2); Squamous Epithelial Cell Urine 0-2 /HPF (0-2); WBC Urine 0-5 /HPF (0-5)
[2023-02-21] MEDS: Acetaminophen 325 MG TABLET 975 MG PO (08:01)
[2023-02-21] MEDS: Ibuprofen 400 MG TABLET PO (08:01)
[2023-02-21 08:05] LABS: HCG Quantitative 4 mIU/mL
--- NOTE | 2023-02-21 08:16 | ED.BACK ---
HPI - Back Pain/Injury General Chief Complaint: Back Pain/Injury Stated Complaint: Tailbone pain Time Seen by Provider: 02/21/23 07:02 Source: patient Mode of arrival: ambulatory History of Present Illness HPI Narrative: 47-year-old female who presents with 3-4 days sacral coccyx pain that is atraumatic in nature, denies any difficulty with defecation and as matter fact has no pain while sitting on the toilet, denies any fevers or chills, denies any dysuria, nausea, vomiting. Patient states that she experiences difficulty in laying on her back, side and is unable to get comfortable while sleeping. Related Data Previous Rx's Medication Instructions Recorded cyclobenzaprine 10 mg tablet 10 mg PO BEDTIME PRN muscle spasm 02/19/21 #7 tabs naproxen 500 mg tablet 500 mg PO BID PRN pain #14 tabs 02/19/21 oxycodone 5 mg capsule 5 mg PO Q8H PRN pain #12 caps 06/10/22 Allergies Allergy/AdvReac Type Severity Reaction Status Date / Time No Known Allergies Allergy Verified 02/21/23 04:53 Review of Systems Review of Systems: Pertinent positives and negatives as stated in HPI [facility] Past Medical History Source: nursing notes reviewed Social History Social History Alcohol intake: former Smoked in Last 30 Days: Yes Use of substances other than those prescribed or required for medical reasons: No Advance Directives: No Advance Directives Information Provided: No Patient : No Physical Exam Vital Signs: Vital Signs: Last Vital Signs Temp 97.5 F 02/21/23 08:18 Pulse 82 02/21/23 08:18 Resp 16 02/21/23 08:18 BP 144/87 H 02/21/23 08:18 Pulse Ox 96 02/21/23 08:18 O2 Del Method Room Air 02/21/23 08:18 BMI result Body Mass Index 31.9 VITAL SIGNS: Reviewed. GENERAL: Well developed, well nourished, in no acute distress. HEAD: Normocephalic/atraumatic EYES: PERRLA, EOMI EARS: Ext canals without abnormality NOSE: Nares patent bilateral OROPHARYNX: no oral lesions noted, posterior pharynx clear NECK: Supple, no adenopathy LUNGS: Normal breath sounds. No adventitious sounds or accessory muscle use. SpO2<100> CARDIOVASCULAR: Regular rate and rhythm without noted murmurs ABDOMEN: Soft, non-tender, non-distended with bowel sounds. 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 MUSCULOSKELETAL: No tenderness, deformities, or effusions noted on gross inspection. EXTREMITIES: No cyanosis, clubbing or edema. SKIN: Inspection of the skin reveals no rashes NEUROLOGIC: Alert and oriented x 4. Strength and sensation to light touch were grossly intact x 4. Medications Administered Discontinued Medications Generic Name Dose Route Start Last Admin Trade Name Freq PRN Reason Stop Dose Admin Acetaminophen 975 mg 02/21/23 07:31 02/21/23 08:01 Acetaminophen 325 Mg Tablet PO 02/21/23 07:32 975 mg ONCE ONE Administration Ibuprofen 400 mg 02/21/23 07:31 02/21/23 08:01 Ibuprofen 400 Mg Tablet PO 02/21/23 07:32 400 mg ONCE ONE Administration Medical Decision Making Medical Decision Making [facility] Narrative: 47-year-old female with history and clinical presentation, DDX: Arthritis,Urinary tract infection, constipation, no concern for fracture, no obvious evidence to suggest abscess/pilonidal cyst. Review of all investigations and hematologic indices demonstrate a chronically stable leukocytosis, otherwise there is no anemia or thrombocytopenia. Chemistry indices are grossly within normal limits with out findings of CHRISTOPHER or electrolytes/liver enzyme derangements. Urinalysis is negative for UTI and x-ray of sacrum is negative for fracture. On re-evaluation patient has had improvement with Tylenol and ibuprofen will discharge on same course and instructions follow-up with primary care doctor. Differential Diagnosis Differential Diagnoses: The differential diagnosis associated with the presentation includes Please see the discussion above Admission/Observation Consideration of admission/observation: Escalation of care including admission/observation considered Please see the discussion above Lab Data [facility] Lab Attestation statement: I reviewed the patient's lab results. Please see the discussion above 02/21/23 05:03 02/21/23 05:03 Labs: Lab Results 02/21/23 02/21/23 Range/Units 05:03 06:05 WBC 13.0 H (4.8-10.8) X10*3/uL RBC 4.72 (4.20-5.50) X10*6/uL Hgb 12.8 (12.0-16.0) g/dl Hct 38.9 (37.0-47.0) % MCV 82.4 (80.0-98.0) fL MCH 27.1 (27.0-33.0) pg MCHC 32.9 (31.0-35.0) g/dl RDW 14.3 (11.0-16.0) % Plt Count 310 (160-400) X10*3/uL MPV 10.1 (9.4-12.3) fL Immature Gran % (Auto) 0.2 (0.0-0.4) % Neut % (Auto) 44.2 L (45-73) % Lymph % (Auto) 46.4 H (20-40) % [place] % (Auto) 7.0 (2-11) % Eos % (Auto) 1.8 (0-4) % Baso % (Auto) 0.4 (0-2) % Lymph # (Auto) 6.0 H (1.2-4.9) X10*3/uL [place] # (Auto) 0.9 (0.1-1.2) X10*3/uL Eos # (Auto) 0.2 (0.0-0.4) X10*3/uL Baso # (Auto) 0.1 (0.0-0.2) X10*3/uL Abs Immat Gran (auto) 0.02 (0.00-0.03) X10*3/uL Absolute Neuts (auto) 5.8 (2.0-8.3) x10*3/uL Absolute Nucleated RBC 0.000 (0.0-0.012) X10*3/uL Nucleated RBC % (auto) 0.0 (0.0-0.2) /100WBC Smear Tech's Comments VERIFIED Sodium 140 (135-145) mmol/L Potassium 3.9 (3.3-5.1) mmol/L Chloride 107 (96-108) mmol/L Carbon Dioxide 24 (22-29) mmol/L Anion Gap 13 (12-20) BUN 12 (9-16) mg/dL Creatinine 0.75 (0.5-1.4) mg/dL Estim Creat Clear Calc 103.2 Estimated GFR > 60 Random Glucose 101 (60-115) mg/dL Calcium 9.1 (8.4-10.2) mg/dL Total Bilirubin 0.1 (0.0-1.0) mg/dL AST 17 (5-31) U/L ALT 19 (0-31) U/L Alkaline Phosphatase 85 (39-117) U/L Total Protein 7.5 (6.5-8.0) g/dL Albumin 4.2 (3.5-5.0) g/dL Beta HCG, Quant 4 mIU/mL Urine Color Yellow Urine Appearance Clear Urine pH 6.5 (5.0-9.0) Ur Specific [facility] 1.020 (1.005-1.025) Urine Protein 100 (2+) H (Neg-Trace) mg/dL Urine Glucose (UA) Negative (Negative) mg/dL Urine Ketones Negative (Negative) mg/dL Urine Blood Trace H (Negative) Urine Nitrite Negative (Negative) Ur Leukocyte Esterase Negative (Negative) Urine RBC 3-5 H (0-2) /HPF Urine WBC 0-5 (0-5) /HPF Ur Squamous Epith Cells 0-2 (0-2) /HPF Urine Bacteria None Seen (None Seen) Hyaline Casts 0-2 (0-2) /LPF Radiology Impression Discussion of test interpretation with radiology: I have reviewed the radiologist's reading. Radiologist Impression: Please see the discussions above External Record Review External record reviewed: Outpatient record and Prior outpatient labs Chronic Conditions Patient?s care impacted by: Hypertension Discharge Plan Discharge Clinical Impression: Pain in sacrum Patient Disposition: Home, Self-Care Instructions: Sacroiliitis (ED) Additional Instructions: 1. Tylenol 1000 mg, orally, every 6 hours as needed for pain control. Do not exceed 4000 mg within 24 hours. 2. Ibuprofen 400 mg, orally with milk or food, every 6 hours as needed for pain control. 3. Please follow-up with your primary care doctor in the next 1-2 days. Return to the ER for any worsening symptoms. Prescriptions: No Action cyclobenzaprine 10 mg tablet 10 mg PO BEDTIME PRN (Reason: muscle spasm) Qty: 7 0RF naproxen 500 mg tablet 500 mg PO BID PRN (Reason: pain) Qty: 14 0RF Rx Instructions: Take with food oxycodone 5 mg capsule 5 mg PO Q8H PRN (Reason: pain) Qty: 12 0RF Rx Instructions: Partial Fill upon patient request.
[2023-02-21 08:18] VITALS: BP 144/87; PULSE 82; RESP 16; TEMP 36.4; O2SAT 96
== END 2023-02-21 10:10 | disposition home or self-care (01) ==
PROVIDERS: Emergency Provider Student in an Organized Health Care Education/Training Program
DX: M53.3 Sacrococcygeal disorders, not elsewhere classified (principal); Z79.899 Other long term (current) drug therapy
CPT/HCPCS: 36415; 72220; 80053; 81001; 84702; 85025; 99283; 99284

== ENCOUNTER 2025-01-29 14:23 | Outpatient (REF) | payer OTHER, SELFPAY ==
--- NOTE | 2025-01-29 14:26 | EMG_ITS ---
Chief complaint: Bilateral hand numbness Reason for referral: Evaluate for Carpal Tunnel Syndrome Referred by: Dr. Monroy Procedure done: Bilateral upper extremities NCS/EMG Precautions and/or limitations: None The limb temperature was monitored continuously and remained between 32-36 degrees C during the performance of the NCS. Nerve Conduction Studies Anti Sensory Summary Table ?Stim Site NR Onset (ms) Norm Onset (ms) Peak (ms) Norm Peak (ms) O-P Amp (?V) Norm O-P Amp Site1 Site2 Delta-0 (ms) Dist (cm) Kaz (m/s) Norm Kaz (m/s) Left Median Anti Sensory (2nd Digit) Wrist NR <3.6 >10 Wrist 2nd Digit 14.0 Right Median Anti Sensory (2nd Digit) Wrist NR <3.6 >10 Wrist 2nd Digit 14.0 Right Radial Anti Sensory (Thumb) Forearm ? 1.3 1.8 <3.1 32.4 Forearm Thumb 1.3 0.0 Left Ulnar Anti Sensory (5th Digit) Wrist ? 2.0 2.6 <3.7 32.3 >15.0 Wrist 5th Digit 2.0 14.0 70 Right Ulnar Anti Sensory (5th Digit) Wrist ? 2.0 2.5 <3.7 26.1 >15.0 Wrist 5th Digit 2.0 14.0 70 Motor Summary Table ?Stim Site NR Onset (ms) Norm Onset (ms) O-P Amp (mV) Norm O-P Amp iAmp (mV) Amp (1st) (%) Site1 Site2 Delta-0 (ms) Dist (cm) Kaz (m/s) Norm Kaz (m/s) Left Median Motor (Abd Poll Brev) Wrist ? 5.2 <3.9 6.9 >4.5 8.1 100.0 Elbow Wrist 3.7 22.5 61 >45 Elbow ? 8.9 7.2 7.9 104.3 Right Median Motor (Abd Poll Brev) Wrist ? 5.5 <3.9 9.0 >4.5 11.2 100.0 Elbow Wrist 4.3 22.5 52 >45 Elbow ? 9.8 8.4 10.2 93.3 Left Ulnar Motor (Abd Dig Minimi) Wrist ? 2.6 <3.0 8.3 >5 9.6 100.0 B Elbow Wrist 3.0 20.0 67 >45 B Elbow ? 5.6 7.1 8.4 85.5 A Elbow B Elbow 1.5 10.0 67 >45 A Elbow ? 7.1 6.1 7.6 73.5 Right Ulnar Motor (Abd Dig Minimi) Wrist ? 2.6 <3.0 6.6 >5 8.1 100.0 B Elbow Wrist 3.1 20.5 66 >45 B Elbow ? 5.7 6.5 7.9 98.5 A Elbow B Elbow 1.3 10.0 77 >45 A Elbow ? 7.0 6.0 7.5 90.9 EMG ?Side Muscle Nerve Root Ins Act Fibs Psw Amp Dur Poly Recrt Int Pat Comment Right 1stDorInt Ulnar C8-T1 Nml Nml Nml Nml Nml 0 Nml Complete Right FlexCarRad Median C6-7 Nml Nml Nml Nml Nml 0 Nml Complete Right Biceps Musculocut C5-6 Nml Nml Nml Nml Nml 0 Nml Complete Right Triceps Radial C6-7-8 Nml Nml Nml Nml Nml 0 Nml Complete Right Deltoid Axillary C5-6 Nml Nml Nml Nml Nml 0 Nml Complete Left 1stDorInt Ulnar C8-T1 Nml Nml Nml Nml Nml 0 Nml Complete Left FlexCarRad Median C6-7 Nml Nml Nml Nml Nml 0 Nml Complete Left Biceps Musculocut C5-6 Nml Nml Nml Nml Nml 0 Nml Complete Left Triceps Radial C6-7-8 Nml Nml Nml Nml Nml 0 Nml Complete Left Deltoid Axillary C5-6 Nml Nml Nml Nml Nml 0 Nml Complete FINDINGS: Bilateral median motor nerves showed prolonged distal latency, normal amplitude and normal conduction velocity. Bilateral median sensory nerves showed absent response. All other nerves tested were within normal. Concentric needle EMG was performed in selected muscles of the bilateral upper extremities. Study did not reveal signs of electric abnormalities as shown in the table above. IMPRESSION: 1. This is an abnormal study. 2. There is electrodiagnostic evidence for bilateral moderate-severe median neuropathy at the wrist, consistent with carpal tunnel syndrome. 3. There is no electrodiagnostic evidence for ulnar neuropathy, brachial plexopathy, or cervical radiculopathy. Thank you for your kind referral. Fabienne Hoyos MD, ROLAND Board Certified, [place] [employer] and [employer] (ABPMR) Board Certified, [place] [employer] Electrodiagnostic [employer] (ABEM) CODIN [phone] x 2 extremities MTDD
--- OUTSIDE RECORDS SUMMARY | 2025-01-29 14:46 | XMS_ITS | Data Portability ---
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 Plan of Treatment Reminders Order Date Submit Date Provider Last Modified By Organization Details Last Modified Time Details Appointments None recorded. Lab microorgani sm identificat ion, unspecified specimen [address] [facility], [address] [place] [address], [place], [address], 3 10:06:19 Referral None recorded. Procedures None recorded. Surgeries None recorded. Imaging None recorded. Medication Orders amoxicillin 875 mg tablet 2022 023 [facility] #[id number], [address] [place], [address], 3 09:40:17 Ciprodex 0.3 %-0.1 % ear drops,suspe nsion 2022 023 [facility] #[id number], [address] [place], [address], 3 09:48:32 Patient TargetsNo targets recorded. Patient Instructions Encounter Date Encounter Id Patient Instructions Last Modified By Organization Details Last Modified Time 03/22/2022 [id number] external otitis [email or web address] o Not available 03/22/2022 09:40:15 Koko. It was nice meeting you today. Here is a recap of what we discussed. Your examination today showed you have otitis externa, a condition that causes inflammation (redness and swelling) of the external ear canal, which is the tube between the outer ear and eardrum. Otitis externa is often referred to as swimmer's ear because repeated exposure to water can make the ear canal more vulnerable to inflammation. - I have prescribed you an antibiotic ear gtt to help treat your infection. You should start feeling better in a few days. Please finish the ear drops as prescribed. - Tylenol or ibuprofen as needed for pain - If your symptoms are not improving in 2-3 days or feel worse, please return to clinic or your PCP for another evaluation. - Go to ER if you develop fever > 101F, severe headache, severe vomiting, chest pain, your jaw locks, or trouble breathing. Here are some tips to prevent future infections: - To avoid getting water in ear while bathing * Put vaseline coated cotton in ear to cover meatus * Ear plugs * Tight fitting bathing cap * Special care with Shampooing - After bathing or swimming * Dry canal with behavioral sciences department chair on lowest setting - Avoid ear Trauma - Avoid cotton-tipped swabs in ear - Avoid scratching inside ear Take care! [email or web address] Not available 03/22/2022 09:39:31 Reason for Referral None Reported. Results Created Date Observation Date Name Description Value Unit Range Abnormal Flag Note LastModifiedBy Organization Detail LastModifiedTime 03/22/1903/26/2022 AEROB IC BACTE RIAL CULTU RE aerobic bacterial culture FINAL REPORT Not Available [facility] [address] [facility], [place], [address], 03/26/2022 10:06:19 03/22/19 23 03/26/2022 AEROB IC BACTE RIAL CULTU RE result 1 MIXED SITE JOEY. Not Available [facility] [address] [facility], [place], [address], 03/26/2022 10:06:19 Result Notes None recorded. Problems Name Problem SNOMED Code Status Onset Date Resolution Date Notes Provider Name and Address Organization Details Recorded Time Hypertensive disorder 48734626 Active 2022 TARAN Gaines - [facility] 3 08:53:49 Problem Notes None recorded. Medical Equipment None Reported. Allergies No known drug allergies Medications Name Sig Start Date Stop Date Status Note LastModified by Organization Details LastModified Time amoxicillin 500 mg capsule TAKE 1 CAPSULE BY MOUTH 3 TIMES A DAY UNTIL FINISHED 03/22 completed Not Available Not Available Not Available ibuprofen 800 mg tablet TAKE 1 TABLET BY MOUTH 3 TIMES A DAY NEEDED 03/22 completed Not Available Not Available Not Available amlodipine 5 mg tablet TAKE 1 TABLET BY MOUTH EVERY DAY active Not Available Not Available No t Available amoxicillin 875 mg tablet Take 1 tablet twice a day by oral route for 10 days. 2022 active Not Available Not Available Not Avai lable lisinopril 30 mg tablet TAKE 1 TABLET BY MOUTH EVERY DAY active Not Available Not Available No t Available ergocalcife rol (vitamin D2) 1,250 mcg (50,000 unit) capsule TAKE 1 CAPSULE BY MOUTH ONE TIME PER WEEK active Not Available Not Available No t Available oxycodone 5 mg tablet TAKE 1 TABLET BY MOUTH EVERY 6 HOURS NEEDED FOR PAIN 03/22 completed Not Available Not Available Not Available Ciprodex 0.3 %-0.1 % ear drops,suspe nsion INSTILL 4 DROPS INTO AFFECTED EAR(S) BY OTIC ROUTE 2 TIMES PER DAY FOR 7 DAYS 2022 active Not Available Not Available Not Avai lable Vitals Date Recorded Body height Body mass index (BMI) Body weight Oxygen saturation Pain severity - 0-10 verbal numeric rating [Score] - Reported Heart rate Respiratory rate Body temperature Systolic And Diastolic Provider Name and Address Organization Details Last Updated DateTime 3 164.47 cm 29.2 kg/m2 56143.0 7 g 100 % 3 79 /min 16 /min 98.5 [degF] 130/76 mm[Hg] ANDRES CHIRINOS - [facility] 3 08:58:21 Social History Question Answer Notes LastModified by Organizat ion Details LastModified Time Tobacco Smoking Status Current Every Day Smoker 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 0.5 PPD Information not available 03/22/2022 Have You Recently Traveled Abroad? No Information not available 03/22/2022 Sex: Unknown Functional Status Question Answer Note LastModified by Organizat ion Details LastModified Time Do you use any illicit or recreational drugs? No Information not available 03/22/2022 What is your level of alcohol consumption? None Information not available 03/22/2022 Are you currently employed? Yes Information not available 03/22/2022 Mental Status None recorded. Family History Relationship Description Onset Age of this Age Resolved Age Notes LastModified by Organization Details LastModified Time Father Hypertensive disorder Not available 2022 08:54:19 Mother Diabetes mellitus Not available 2022 08:54:28 Medical History No medical history recorded. Gynecological HistoryNo gynecological history recorded. Obstetrics History GPAL:G 0 P 0 0 0 0 Past Encounters Encounter ID Performer Location Encounter Start Date Encounter Closed Date Diagnosis/Indication Diagnosis SNOMED-CT Code Diagnosis ICD10 Code Diagnosis IMO Codes Diagnosis Note [id number] [place] [address] 12/10/2018 08:38:54 12/10/2018 09:55:36 [id number] TARAN SHARIF [address] [address] [place] [address] 03/22/2022 08:43:10 03/22/2022 09:43:02 Otitis externa of left ear 4400720386 459999 H60.92 Health Concerns Section Related Observation LastModified by Organization Detai ls LastModified Time None Recorded Concern Status LastModified by Organization Details LastModified Time None Recorded Advance Directives Directive None Recorded Payers Insurance Date Sequence Insurance Name Policy Number Policy Nicholas Covered Member ID Nicholas Member ID Guarantor Name 03/22/2022 1 [employer] (POS) [id number] Muriel Romero [id number] Muriel Carbonekeenajazmine Notes Date Note Type Note Provider Name and Address Organization Details Recorded Time 03/22/2022 text/html Muriel is a 46 yo F with PMH of HTN here for evaluation of left ear ache onset 1 week. Notes hx of frequent OE in the left ear requiring both ear drops and antibiotics orally. She notes pain, discharge and fullness of the left ear. No issues with the right ear. States last year she was treated with cipro-HC and paid out of pocket $100 would like the same since it worked so well for her. ROULA CLAY-BRYSON Loja, TARAN [facility] [address], [place], [address], [place] - [facility] 03/22/2022 09:49:19 OBGyn Episode No OBEpisode recorded.
--- OUTSIDE RECORDS SUMMARY | 2025-01-29 14:46 | XMS_ITS | Data Portability ---
Author Organization [facility], Main Office Address [address] [place] [address] Care Team Providers Care Vat Operator Name Role Phone WALTER ORDONEZ Osteopathy Doctor MAXIMILIAN NAIR Model Maker Plastic FRANCISCO ROWLEY Primary Care Provider FRANKIE KAUR Loan Service Officer [phone] SYDNIE SINGLETON Dentist Assessment Encounter Date Assessment Date Assessment LastModified by Organization Details LastModified Time 02/04/2023 02/04/2023 reviewed notes from 01/28 by CK. Discussed with patient the signs/symptoms warranted for a return to office visit and/or an ER visit. Patient understood and agreed with the plan. Not available 02/04/2023 09:26:47 08/30/2023 08/30/2023 Patient is at lo w risk for cardiopulmonary complications with planned procedure based on comorbidities, good exertional tolerance and overall procedure risk. Patient advised to avoid aspirin for 14 days and NSAIDS for 7 days prior. May proceed to scheduled surgery as planned. Not available 08/30/2023 15:43:15 04/23/2024 04/23/2024 This service was provided using telemedicine. Patient consented to video & audio visit Patient was located in the [facility]. Provider was located in the office. No other persons participated in the telemedicine visit except for the patient unless otherwise indicated here. Total time of visit was 16 minutes. [email or web address] Not available 04/23/2024 17:18:23 10/16/2024 10/16/2024 Otitis Externa (recurrent): -Start Ciprodex otic drops per label. -Keep ear dry; avoid Q-tips/earbuds; return sooner if pain, swelling, fever, or worsening drainage. Bilateral UE Paresthesia r /o carpal/cubital tunnel vs cervical radiculopathy vs peripheral neuropathy: -Order EMG/NCS (bilateral upper extremities). -Order neuropathy labs -Conservative measures: will wait for further managment after EMG. -Red flags reviewed: new/progressive weakness, gait disturbance, bowel/bladder changes ED. Hyperlipidemia (not at goal): -Increase atorvastatin to 40 mg daily (discussed risks/benefits, myalgia monitoring). -Repeat fasting lipids in 2 months after dose adjustment. Magnesium m ildly elevated: -Reviewed: moderate high-Mg foods (incl. pumpkin seeds) temporarily. Leukocytosis (mild): -Likely reactive (smoking/ear infection). Repeat after ear symptoms resolve. Tobacco use: -Counseled on cessation; patient will reach out when ready. Mental health: -Continue mindfulness; psychotherapy recommended (patient declines meds for now). -Denies SI/HI; provided return/call precautions and crisis resources. Follow-up in ~2 months to review EMG/labs, lipids, paresthesia status, mental health, and ears. Return sooner if ear symptoms do not improve or neurologic symptoms worsen. [email or web address] Not available 10/16/2024 17:04:41 Plan of Treatment Reminders Order Date Submit Date Provider Last Modified By Organization Details Last Modified Time Details Appointments None record ed. Lab aspart ate aminot ransfe rase/a lanine aminot ransfe rase, ratio, serum or plasma (OBS) 2024 025 JUVENCIO [facility] (Centralized Electronic Ordering - All Locations), Patient Can Go To The Location Of Their Choice, [id number] 5 06:08:49 lipid panel, serum 2024 025 [email or web address] [facility] (Centralized Electronic Ordering - All Locations), Patient Can Go To The Location Of Their Choice, [id number] 5 11:40:33 LAURA (antin uclear antibo dies) screen , ifa, serum 2024 025 JUVENCIO [facility], [address], [place], [address], 06:08:51 C reacti ve protei n, QN, serum or plasma 2024 025 JUVENCIO [facility], [address], [place], [address], 5 06:08:51 borrel ia burgdo rferi IgG + IgM + total panel, IA, serum 2024 025 JUVENCIO [facility], [address], [place], [address], 06:08:52 heavy metals panel, blood 2024 025 JUVENCIO [facility], [address], [place], [address], 06:08:52 vitami n B12, serum 2024 025 JUVENCIO [facility], [address], [place], [address], 06:08:53 methyl malona te, QN, serum or plasma 2024 025 JUVENCIO [facility], [address], [place], [address], 5 06:08:54 rf (rheum atoid factor ), serum 2024 025 JUVENCIO [facility], [address], [place], [address], 06:08:55 thiami ne, QN, blood 2024 025 JUVENCIO [facility], [address], [place], [address], 5 06:08:55 erythr ocyte sedime ntatio n rate by ananth gren method 2024 025 [facility]), Patient Can Go To The Location Of Their Choice, 06:08:56 immuno electr ophore sis, urine 2024 [facility]ERICK [facility]), Patient Can Go To The Location Of Their Choice, 06:08:57 spep + immuno globul ins, serum 2024 025 [facility]), Patient Can Go To The Location Of Their Choice, 06:08:57 ccp (cycli c citrul linate d peptid e) iga+ig g, serum 2024 [facility]), Patient Can Go To The Location Of Their Choice, 06:08:58 HbA1c (hemog lobin A1c), blood 2024 [facility]ICK [facility]), Patient Can Go To The Location Of Their Choice, 08:07:26 TSH, ultra- sensit parker, serum 2024 025 [facility]ICK [facility]), Patient Can Go To The Location Of Their Choice, 08:07:26 magnes ium, serum or plasma 2024 025 JUVENCIO [facility], [address] [facility], [address], [place], [address], 08:07:27 lipid panel, serum 2024 025 [email or web address] [facility], [address], [address], [place], [address], 5 10:57:52 aspart ate aminot ransfe rase/a lanine aminot ransfe rase, ratio, serum or plasma (OBS) 2024 025 JUVENCIO [facility] (Centralized Electronic Ordering - All Locations), Patient Can Go To The Location Of Their Choice, [address] 5 08:07:25 CBC w/ auto diff 2024 025 JUVENCIO [facility], [address], [address] [place], [address], 5 08:07:24 CBC w/ auto diff 2023 024 JUVENCIO [facility] (Centralized Electronic Ordering - All Locations), Patient Can Go To The Location Of Their Choice, [address] 4 08:09:08 PT/PTT , plasma 2023 024 JUVENCIO [facility] ([facility]ized [facility] Ordering - All Locations), Patient Can Go To The Location Of Their Choice, 4 08:09:09 BMP, serum or plasma 2023 024 JUVENCIO [facility] (Centralized Electronic Ordering - All Locations), Patient Can Go To The Location Of Their Choice, [address] 4 08:09:08 Referral psycho logist referr al 2024 025 [email or web address] Not available 5 09:29:40 gastro entero logist referr al - Needs colon cancer screen ing 2024 025 [email or web address] Not available 5 12:04:47 Procedures colono scopy screen ing (PROC) 2024 025 [email or web address] Not available 5 08:21:54 Surgeries None record ed. Imaging electr omyogr am + nerve conduc tion study - Bilate ral upper Extrem ity 2024 025 bren [facility], [address], [place], [address], 5 11:11:14 XR, cervic al spine 2024 025 bren [facility], [address], [place], [address], 5 09:19:23 MAMMO, screen ing, bilate ral - Perfor m Diagno stic Mammog kisha and Breast Ultras ound if needed / Perfor m Ultras ound Guided Aspira tion and/or Breast Biopsy if warran meli 2024 025 [facility], [address], [address], [place], [address], 5 22:25:32 electr ocardi ogram 2023 024 [email or web address] In-Office Order, Internal Use Only DO Not Attach Compendium DO Not Attach Compendium, Do Not Delete/merge, [id number] 4 15:42:01 Medication Orders atorva statin 40 mg tablet 2024 025 [facility], [address] [place], [address], 5 16:16:52 Ciprod ex 0.3 %-0.1 % ear drops, suspen brendon 2024 025 [facility], [address] [place], [address], 5 16:16:51 atorva statin 20 mg tablet 2024 025 [facility], [address] [place], [address], 5 16:17:41 nicoti ne 10 mg inhala tion cartri dge 2024 025 [facility], [address] [place], [address], 5 14:05:20 levofl oxacin 500 mg tablet 2022 023 [email or web address] [facility], [address] [place], [address], 15:14:34 Patient TargetsNo targets recorded. Patient Instructions Encounter Date Encounter Id Patient Instructions Last Modified By Organization Details Last Modified Time 04/23/2024 [id number] deciding about using medicines to quit smoking [email or web address] Not available 04/23/2024 17:22:21 Quitting Tobacco : Care Instructions [email or web address] Not available 04/23/2024 17:22:21 07/15/2024 [id number] neck: exercises [email or web address] Not available 07/15/2024 14:39:19 healthy upper back: exercises [email or web address] Not available 07/15/2024 14:39:19 Well Visit, Ages 18 to 65: Care Instructions [email or web address] Not available 07/15/2024 14:25:43 learning about high white blood cell counts ckokar Not available 07/15/2024 14:25:44 learning about colon cancer ckokar Not available 07/15/2024 14:25:43 Starting a Weight-Loss Plan: Care Instructions ckokar Not available 07/15/2024 14:25:43 10/16/2024 [id number] deciding about using medicines to quit smoking ckokar Not available 10/16/2024 17:06:10 Quitting Tobacco : Care Instructions ckokar Not available 10/16/2024 17:06:10 neck pain: care instructions ckokar Not available 10/16/2024 16:16:12 learning about anxiety disorders ckokar Not available 10/16/2024 16:16:12 deciding about stopping your antidepressant ckokar Not available 10/16/2024 16:16:11 depression after childbirth: care instructions ckokar Not available 10/16/2024 16:16:12 depression and chronic disease: care instructions ckokar Not available 10/16/2024 16:16:12 depression treatment: care instructions ckokar Not available 10/16/2024 16:16:11 learning about depression during ckokar Not available 10/16/2024 16:16:12 Preventing Depression From Coming Back: Care Instructions ckokar Not available 10/16/2024 16:16:12 recovering from depression: care instructions ckokar Not available 10/16/2024 16:16:11 seasonal affecti ve disorder: care instructions ckokar Not available 10/16/2024 16:16:12 suicidal thought s in a family member: care instructions tabitha Not available 10/16/2024 16:16:12 Reason for Referral Form Worker Referral for Screening for malignant neoplasm of colon Needs colon cancer screening Referring Physician: Francisco Rowley, [facility], Encounter Date: 07/15/2024 Psychologist Referral for Mo derate recurrent major depression Referring Physician: Francisco Rowley [facility], Encounter Date: 07/15/2024 Results Created Date Observation Date Name Description Value Unit Range Abnormal Flag Note LastModifiedBy Organization Detail LastModifiedTime 09/05/19 24 09/06/2023 CBC WITH DIFFE RENTI AL/PL ATELE T WBC 13.2 x10e3 /uL 3.4-10 .8 above high normal Not Available [facility] ([facility]) [address] [place], [address], 09/06/2023 08:09:08 09/05/19 24 09/06/2023 CBC WITH DIFFE RENTI AL/PL ATELE T RBC 4.74 x10e6 /uL 3.77-5 .28 Not Available [facility] ([facility]) [address] [place], [address], 09/06/2023 08:09:08 09/05/19 24 09/06/2023 CBC WITH DIFFE RENTI AL/PL ATELE T hemoglobin 13.1 g/dL 11.1-1 5.9 Not Available [facility] ([facility]) [address] [place], [address], 09/06/2023 08:09:08 09/05/19 24 09/06/2023 CBC WITH DIFFE RENTI AL/PL ATELE T hematocrit 39.9 % 34.0-4 6.6 Not Available [facility] ([facility]) [address] [place], [address], 09/06/2023 08:09:08 09/05/19 24 09/06/2023 CBC WITH DIFFE RENTI AL/PL ATELE T MCV 84 fL 79-97 Not Available [facility] ([facility]) [address] [facility], [place], [address], 09/06/2023 08:09:08 09/05/19 24 09/06/2023 CBC WITH DIFFE RENTI AL/PL ATELE T MCH 27.6 pg 26.6-3 3.0 Not Available [facility] ([facility]) [address] [facility], [place], [address], 09/06/2023 08:09:08 09/05/19 24 09/06/2023 CBC WITH DIFFE RENTI AL/PL ATELE T MCHC 32.8 g/dL 31.5-3 5.7 Not Available [facility] ([facility]) [address] [facility], [place], [address], 09/06/2023 08:09:08 09/05/19 24 09/06/2023 CBC WITH DIFFE RENTI AL/PL ATELE T RDW 14.5 % 11.7-1 5.4 Not Available [facility] ([facility]) [address] [facility], [place], [address], 09/06/2023 08:09:08 09/05/19 24 09/06/2023 CBC WITH DIFFE RENTI AL/PL ATELE T platelets 296 x10e3 /uL 150-45 0 Not Available [facility] ([facility]) [address] [facility], [place], [address], 09/06/2023 08:09:08 09/05/19 24 09/06/2023 CBC WITH DIFFE RENTI AL/PL ATELE T neutrophils 47 % not estab. Not Available [facility] ([facility]) [address] [facility], [place], [address], 09/06/2023 08:09:08 09/05/19 24 09/06/2023 CBC WITH DIFFE RENTI AL/PL ATELE T lymphs 43 % not estab. Not Available [facility] ([facility]) [address] [facility], [place], [address], 09/06/2023 08:09:08 09/05/19 24 09/06/2023 CBC WITH DIFFE RENTI AL/PL ATELE T monocytes 7 % not estab. Not Available [facility] ([facility]) [address] [facility], [place], [address], 09/06/2023 08:09:08 09/05/19 24 09/06/2023 CBC WITH DIFFE RENTI AL/PL ATELE T eos 2 % not estab. Not Available [facility] ([facility]) [address] [facility], [place], [address], 09/06/2023 08:09:08 09/05/19 24 09/06/2023 CBC WITH DIFFE RENTI AL/PL ATELE T basos 1 % not estab. Not Available [facility] ([facility]) [address] [facility], [place], [address], 09/06/2023 08:09:08 09/05/19 24 09/06/2023 CBC WITH DIFFE RENTI AL/PL ATELE T immature cells HOMICIDE SQUAD LIEUTENANT Not Available [facility] ([facility]) [address] [place], [address], 09/06/2023 08:09:08 09/05/19 24 09/06/2023 CBC WITH DIFFE RENTI AL/PL ATELE T neutrophils (absolute) 6.3 x10e3 /uL 1.4-7. 0 Not Available [facility] ([facility]) [address] [place], [address], 09/06/2023 08:09:08 09/05/19 24 09/06/2023 CBC WITH DIFFE RENTI AL/PL ATELE T lymphs (absolute) 5.6 x10e3 /uL 0.7-3. 1 above high normal Not Available [facility] ([facility]) [address] [place], [address], 09/06/2023 08:09:08 09/05/19 24 09/06/2023 CBC WITH DIFFE RENTI AL/PL ATELE T monocytes(ab solute) 0.9 x10e3 /uL 0.1-0. 9 Not Available [facility] ([facility]) [address] [facility], [place], [address], 09/06/2023 08:09:08 09/05/19 24 09/06/2023 CBC WITH DIFFE RENTI AL/PL ATELE T eos (absolute) 0.3 x10e3 /uL 0.0-0. 4 Not Available [facility] ([facility]) [address] [place], [address], 09/06/2023 08:09:08 09/05/19 24 09/06/2023 CBC WITH DIFFE RENTI AL/PL ATELE T baso (absolute) 0.1 x10e3 /uL 0.0-0. 2 Not Available [facility] ([facility]) [address] [facility], [place], [address], 09/06/2023 08:09:08 09/05/19 24 09/06/2023 CBC WITH DIFFE RENTI AL/PL ATELE T immature granulocytes 0 % not estab. Not Available [facility] ([facility]) [address] [place], [address], 09/06/2023 08:09:08 09/05/19 24 09/06/2023 CBC WITH DIFFE RENTI AL/PL ATELE T immature grans (abs) 0.0 x10e3 /uL 0.0-0. 1 Not Available [facility] ([facility]) [address] [place], [address], 09/06/2023 08:09:08 09/05/19 24 09/06/2023 CBC WITH DIFFE RENTI AL/PL ATELE T NRBC HOMICIDE SQUAD LIEUTENANT Not Available [facility] ([facility]) [address] [place], [address], 09/06/2023 08:09:08 09/05/19 24 09/06/2023 CBC WITH DIFFE GEETHA AL/REID [facility] hematology comments: HOMICIDE SQUAD LIEUTENANT Not Available [facility] ([facility]) [address] [facility], [place], [address], 09/06/2023 08:09:08 09/05/19 24 09/06/2023 BASIC METAB OLIC PANEL (8) glucose 85 mg/dL 70-99 Not Available [facility] ([facility]) [address] [facility], [place], [address], 09/06/2023 08:09:08 09/05/19 24 09/06/2023 BASIC METAB OLIC PANEL (8) BUN 11 mg/dL 6-24 Not Available [facility] ([facility]) [address] [facility], [place], [address], 09/06/2023 08:09:08 09/05/19 24 09/06/2023 BASIC METAB OLIC PANEL (8) creatinine 0.75 mg/dL 0.57-1 .00 Not Available [facility] ([facility]) [address] [facility], [place], [address], 09/06/2023 08:09:08 09/05/19 24 09/06/2023 BASIC METAB OLIC PANEL (8) eGFR 99 mL/mi n/1.7 3 >59 Not Available [facility] ([facility]) [address] [facility], [place], [address], 09/06/2023 08:09:08 09/05/19 24 09/06/2023 BASIC METAB OLIC PANEL (8) BUN/creatini ne ratio 15 9-23 Not Available [facility] ([facility]) [address] [facility], [place], [address], 09/06/2023 08:09:08 09/05/19 24 09/06/2023 BASIC METAB OLIC PANEL (8) sodium 140 mmol/ L 134-14 4 Not Available [facility] ([facility]) [address] [place], [address], 09/06/2023 08:09:08 09/05/19 24 09/06/2023 BASIC METAB OLIC PANEL (8) potassium 4.2 mmol/ L 3.5-5. 2 Not Available [facility] ([facility]) [address] [place], [address], 09/06/2023 08:09:08 09/05/1909/06/2023 BASIC METAB OLIC PANEL (8) chloride 106 mmol/ L 96-106 Not Available [facility] ([facility]) [address] [place], [address], 09/06/2023 08:09:08 09/05/1909/06/2023 BASIC METAB OLIC PANEL (8) carbon dioxide, total 18 mmol/ L 20-29 below low normal Not Available [facility] ([facility]) [address] [place], [address], 09/06/2023 08:09:08 09/05/19 24 09/06/2023 BASIC METAB OLIC PANEL (8) calcium 9.2 mg/dL 8.7-10 .2 Not Available [facility] ([facility]) [address] [place], [address], 09/06/2023 08:09:08 09/05/1909/06/2023 PT AND PTT INR 0.9 0.9-1. 2 Refer ence inter jim is for non-a ntico agula meli patie nts. Sugge sted INR thera peuti c range for Vitam in K antag onist thera py: Stand zachariah Dose (mode rate inten sity thera peuti c range ): 2.0 - 3.0 Highe r inten sity thera peuti c range 2.5 - 3.5 Not Available [facility] ([facility]) [address] [facility], [place], [address], 09/06/2023 08:09:09 09/05/19 24 09/06/2023 PT AND PTT prothrombin time 9.7 sec 9.1-12 .0 Not Available [facility] ([facility]) [address] [facility], [place], [address], 09/06/2023 08:09:09 09/05/19 24 09/06/2023 PT AND PTT APTT 29 sec 24-33 This test has not been valid ated for [facility] unfra ction ated hepar in thera py. aPTT- based thera peuti c range s for unfra ction ated hepar in thera py have not been estab kiesha thomas For gener al guide lines on Hepar in [facility] , refer to the [facility] Agustin génesis of Cece chou. Not Available [facility] ([facility]) [address] [facility], [place], [address], 09/06/2023 08:09:09 10/16/19 25 10/15/2024 CBC WITH DIFFE RENTI AL/PL ATELE T WBC 12.6 x10e3 /uL 3.4-10 .8 above high normal Not Available [facility] ([facility]) [address] [facility], [place], [address], 10/16/2024 08:07:24 10/16/19 25 10/15/2024 CBC WITH DIFFE RENTI AL/PL ATELE T RBC 4.88 x10e6 /uL 3.77-5 .28 normal Not Available [facility] ([facility]) [address] [place], [address], 10/16/2024 08:07:24 10/16/19 25 10/15/2024 CBC WITH DIFFE RENTI AL/PL ATELE T hemoglobin 13.5 g/dL 11.1-1 5.9 normal Not Available [facility] ([facility]) [address] [facility], [place], [address], 10/16/2024 08:07:24 10/16/19 25 10/15/2024 CBC WITH DIFFE RENTI AL/PL ATELE T hematocrit 42.1 % 34.0-4 6.6 normal Not Available [facility] ([facility]) [address] [place], [address], 10/16/2024 08:07:24 10/16/19 25 10/15/2024 CBC WITH DIFFE RENTI AL/PL ATELE T MCV 86 fL 79-97 normal Not Available [facility] ([facility]) [address] [place], [address], 10/16/2024 08:07:24 10/16/19 25 10/15/2024 CBC WITH DIFFE RENTI AL/PL ATELE T MCH 27.7 pg 26.6-3 3.0 normal Not Available [facility] ([facility]) [address] [facility], [place], [address], 10/16/2024 08:07:24 10/16/19 25 10/15/2024 CBC WITH DIFFE RENTI AL/PL ATELE T MCHC 32.1 g/dL 31.5-3 5.7 normal Not Available [facility] ([facility]) [address] [place], [address], 10/16/2024 08:07:24 10/16/19 25 10/15/2024 CBC WITH DIFFE RENTI AL/PL ATELE T RDW 13.7 % 11.7-1 5.4 Not Available [facility] ([facility]) [address] [place], [address], 10/16/2024 08:07:24 10/16/19 25 10/15/2024 CBC WITH DIFFE RENTI AL/PL ATELE T platelets 311 x10e3 /uL 150-45 0 normal Not Available [facility] ([facility]) [address] [place], [address], 10/16/2024 08:07:24 10/16/19 25 10/15/2024 CBC WITH DIFFE RENTI AL/PL ATELE T neutrophils 60 % not estab. normal Not Available [facility] ([facility]) [address] [facility], [place], [address], 10/16/2024 08:07:24 10/16/19 25 10/15/2024 CBC WITH DIFFE RENTI AL/PL ATELE T lymphs 32 % not estab. normal Not Available [facility] ([facility]) [address] [facility], [place], [address], 10/16/2024 08:07:24 10/16/19 25 10/15/2024 CBC WITH DIFFE RENTI AL/PL ATELE T monocytes 6 % not estab. normal Not Available [facility] ([facility]) [address] [facility], [place], [address], 10/16/2024 08:07:24 10/16/19 25 10/15/2024 CBC WITH DIFFE RENTI AL/PL ATELE T eos 2 % not estab. normal Not Available [facility] ([facility]) [address] [facility], [place], [address], 10/16/2024 08:07:24 10/16/19 25 10/15/2024 CBC WITH DIFFE RENTI AL/PL ATELE T basos 0 % not estab. normal Not Available [facility] ([facility]) [address] [facility], [place], [address], 10/16/2024 08:07:24 10/16/19 25 10/15/2024 CBC WITH DIFFE RENTI AL/PL ATELE T immature cells HOMICIDE SQUAD LIEUTENANT Not Available [facility] ([facility]) [address] [facility], [place], [address], 10/16/2024 08:07:24 10/16/19 25 10/15/2024 CBC WITH DIFFE RENTI AL/PL ATELE T neutrophils (absolute) 7.5 x10e3 /uL 1.4-7. 0 above high normal Not Available [facility] ([facility]) [address] [place], [address], 10/16/2024 08:07:24 10/16/19 25 10/15/2024 CBC WITH DIFFE RENTI AL/PL ATELE T lymphs (absolute) 4.1 x10e3 /uL 0.7-3. 1 above high normal Not Available [facility] ([facility]) [address] [place], [address], 10/16/2024 08:07:24 10/16/19 25 10/15/2024 CBC WITH DIFFE RENTI AL/PL ATELE T monocytes(ab solute) 0.8 x10e3 /uL 0.1-0. 9 normal Not Available [facility] ([facility]) [address] [facility], [place], [address], 10/16/2024 08:07:24 10/16/19 25 10/15/2024 CBC WITH DIFFE RENTI AL/PL ATELE T eos (absolute) 0.2 x10e3 /uL 0.0-0. 4 normal Not Available [facility] ([facility]) [address] [place], [address], 10/16/2024 08:07:24 10/16/19 25 10/15/2024 CBC WITH DIFFE RENTI AL/PL ATELE T baso (absolute) 0.1 x10e3 /uL 0.0-0. 2 normal Not Available [facility] ([facility]) [address] [place], [address], 10/16/2024 08:07:24 10/16/19 25 10/15/2024 CBC WITH DIFFE RENTI AL/PL ATELE T immature granulocytes 0 % not estab. Not Available [facility] ([facility]) [address] [place], [address], 10/16/2024 08:07:24 10/16/19 25 10/15/2024 CBC WITH DIFFE RENTI AL/PL ATELE T immature grans (abs) 0.0 x10e3 /uL 0.0-0. 1 Not Available [facility] ([facility]) [address] [facility], [place], [address], 10/16/2024 08:07:24 10/16/19 25 10/15/2024 CBC WITH DIFFE RENTI AL/PL ATELE T NRBC HOMICIDE SQUAD LIEUTENANT Not Available [facility] ([facility]) [address] [facility], [place], [address], 10/16/2024 08:07:24 10/16/19 25 10/15/2024 CBC WITH DIFFE RENTI AL/PL ATELE T hematology comments: HOMICIDE SQUAD LIEUTENANT Not Available [facility] ([facility]) [address] [facility], [place], [address], 10/16/2024 08:07:24 10/16/19 25 10/15/2024 LIPID PANEL cholesterol, total 148 mg/dL 100-19 9 normal Not Available [facility] ([facility]) [address] [facility], [place], [address], 10/16/2024 08:07:25 10/16/19 25 10/15/2024 LIPID PANEL triglyceride s 171 mg/dL 0-149 above high normal Not Available [facility] ([facility]) [address] [facility], [place], [address], 10/16/2024 08:07:25 10/16/19 25 10/15/2024 LIPID PANEL HDL cholesterol 25 mg/dL >39 below low normal Not Available [facility] ([facility]) [address] [facility], [place], [address], 10/16/2024 08:07:25 10/16/19 25 10/15/2024 LIPID PANEL VLDL cholesterol shanice 30 mg/dL 5-40 Not Available [facility] ([facility]) [address] [place], [address], 10/16/2024 08:07:25 10/16/19 25 10/15/2024 LIPID PANEL LDL chol calc ([facility]) 93 mg/dL 0-99 Not Available [facility] ([facility]) [address] [place], [address], 10/16/2024 08:07:25 10/16/19 25 10/15/2024 LIPID PANEL LDL calc comment: HOMICIDE SQUAD LIEUTENANT Not Available [facility] ([facility]) [address] [place], [address], 10/16/2024 08:07:25 10/16/19 25 10/15/2024 ALT+A ST AST (SGOT) 16 IU/L 0-40 normal Not Available [facility] ([facility]) [address] [place], [address], 10/16/2024 08:07:25 10/16/19 25 10/15/2024 ALT+A ST ALT (SGPT) 23 IU/L 0-32 normal Not Available [facility] ([facility]) [address] [place], [address], 10/16/2024 08:07:25 10/16/19 25 10/16/2024 HEMOG LOBIN A1C hemoglobin A1C 5.7 % 4.8-5. 6 above high normal Predi abete s: 5.7 - 6.4 Diabe pedro: >6.4 Glyce skip contr ol for adult s with diabe pedro: <7.0 Not Available [facility] ([facility]) [address] [place], [address], 10/16/2024 08:07:26 10/16/19 25 10/16/2024 TSH RFX ON ABNOR MAL TO FREE T4 TSH 0.856 uIU/m L 0.450- 4.500 normal Not Available [facility] ([facility]) [address] [facility], [place], [address], 10/16/2024 08:07:26 10/16/19 25 10/16/2024 MAGNE SIUM magnesium 2.6 mg/dL 1.6-2. 3 above high normal Not Available [facility] ([facility]) [address] [facility], [place], [address], 10/16/2024 08:07:27 03/01/20 23 03/01/2023 MAMMO , scree bessie, digit al, bilat eral PROCED URE: MM Digita l Mammo Screen ing INDICA TION: Screen ing for breast cancer . No known palpab le abnorm alitie s. COMPAR SINDY: Prior mammog abdiel most recent ly dated 021. TECHNI QUE: Full-f ield digita l CC and MLO 3D tomosy nthesi s images of both breast s were acquir ed. Comput er-aid ed detect ion (CAD) was utiliz ed in the interp retati on of this study. DENSIT Y: The breast tissue is hetero geneou sly dense, which may obscur e masses . FINDIN GS: No suspic ious masses , suspic ious microc alcifi cation s, or areas of valeria ectura l distor tion are seen in either breast to sugges t malign josesito. IMPRES BRENDON: No mammog raphic eviden ce of malign josesito. RECOMM ENDATI ON: Annual mammog raphic screen ing BI-RAD S: 1 (Negat parker) Lay letter mailed to gurjit stanford WSN: [id number] Orderi ng Physic malena: Tanisha Rowley Dictat ed By: Corin Daneglo MD Dictat ed Date/T alvaro: 4:47 pm Review ed By: Corin Dangelo MD Signed By: Corin Dangelo MD Signed Date/T alvaro: 4:47 pm Transc ribed By: CSB Transc riptio n Date/T alvaro: 4:44 pm Birads : Patien t Class: Outpat ient [email or web address] [facility] ([facility]) [address], [place], [address], 03/05/2023 13:13:26 03/01/20 23 03/01/2023 MAMMO , scree bessie, digit al, bilat eral No observ ation record ed. [email or web address] [facility] [address] [place], [address], 03/05/2023 13:13:26 08/30/19 24 08/30/2023 elect rocar diogr am No observ ation record ed. [email or web address] In-Office Order Internal Use Only DO Not Attach Compendium DO Not Attach Compendium, Do Not Delete/merge, [id number] 08/31/2023 11:54:22 08/30/19 24 elect rocar diogr am No observ ation record ed. [email or web address] In-Office Order Internal Use Only DO Not Attach Compendium DO Not Attach Compendium, Do Not Delete/merge, [id number] 08/30/2023 15:38:13 09/20/19 25 09/18/2024 MAMMO , scree bessie, bilat eral No observ ation record ed. [email or web address] [facility] [address], [place], [address], 09/21/2024 11:10:19 09/20/19 25 09/18/2024 MAMMO , scree bessie, digit al, bilat eral PROCED URE: MM Digita l Mammo Screen ing INDICA TION: Screen ing. No known palpab le abnorm alitie s. COMPAR SINDY: Dating back to 2016 TECHNI QUE: Full-f ield digita l CC and MLO 3D tomosy nthesi s images of both breast s were acquir ed. Comput er-aid ed detect ion (CAD) was utiliz ed in the interp retati on of this study. DENSIT Y: The breast s are hetero geneou sly dense, which may obscur e small masses . FINDIN GS: No suspic ious masses , suspic ious microc alcifi cation s, or areas of valeria ectura l distor tion are seen in either breast to sugges t malign josesito. IMPRES BRENDON: No mammog raphic eviden ce of malign josesito. RECOMM ENDATI ON: Annual mammog raphic screen ing BI-RAD S: 1 (Negat parker) Lay letter mailed to gurjit stanford WSN: [id number] Orderi ng Physic malena: Tanisha Rowley Dictat ed By: Mainor Lloyd MD Dictat ed Date/T alvaro: 10:20 pm Review ed By: Mainor Lloyd MD Signed By: Mainor Lloyd MD Signed Date/T alvaro: 10:20 pm Transc ribed By: ISMAEL Transc riptio n Date/T alvaro: 10:20 pm Birads : Gurjit stanford Class: Outpat ient [email or web address] [facility] ([facility]) [address] [place] [address], [address], 09/21/2024 11:13:30 10/15/1910/13/2024 XR, cervi shanice spine , 4 or 5 view Cervic al Spine 4 or 5 Views Reason : Cervic algia COMPAR SINDY: None. FINDIN GS: No bone lesion s or fractu res. Normal odonto id and C1/2 relati onship . Straig htenin g of the cervic al spine may be due to muscul ar spasm. Normal alignm ent. Mild interv ertebr al disc space narrow ing at C4-C5, C5-C6 and C6-C7 with associ ated osteop hyte format ion and mild endpla te sclero sis.. Minima l right neural forami nal narrow ing at C6-7 second oleg to mild uncove rtebra l hypert rophy. No signif icant narrow ing of the left-s ided neural forami na. Normal prever tebral soft tissue s and clear lung apices . IMPRES BRENDON: Mild chroni c degene rative change s in the cervic al spine with no acute osseou s abnorm ality. WSN: [id number] Orderi ng Physic malena: Tanisha Rowley Dictat ed By: Julia Nix MD Dictat ed Date/T alvaro: 10:27 a Review ed By: Julia Nix MD Signed By: Julia Nix MD Signed Date/T alvaro: 10:27 am Transc ribed By: ISMAEL Transc ribed Date/T alvaro: 10:24 am Patien t Class: Outpat ient JUVENCIO [facility] ([facility]) [address], [place], [address], 10/14/2024 12:57:21 10/15/1910/13/2024 XR, cervi shanice spine No observ ation record ed. [facility] [address] [place], [address], 10/14/2024 12:52:41 Result Notes Documentation Provider Name and Address Organization Details Recorded Time Mammo, Screening, Digital, Bilateral : PROCEDURE: MM Digital Mammo Screening INDICATION: Screening for breast cancer. No known palpable abnormalities. COMPARISON: Prior mammograms most recently dated 02/12/2021. TECHNIQUE: Full-field digital CC and MLO 3D tomosynthesis images of both breasts were acquired. Computer-aided detection (CAD) was utilized in the interpretation of this study. DENSITY: The breast tissue is heterogeneously dense, which may obscure masses. FINDINGS: No suspicious masses, suspicious microcalcifications, or areas of architectural distortion are seen in either breast to suggest malignancy. IMPRESSION: No mammographic evidence of malignancy. RECOMMENDATION: Annual mammographic screening BI-RADS: 1 (Negative) Lay letter mailed to patient WSN: [id number] Ordering Physician: Francisco Rowley Dictated By: Jyoti Dangelo MD Dictated Date/Time: 03/01/23 4:47 pm Reviewed By: Jyoti Dangelo MD Signed By: Jyoti Dangelo MD Signed Date/Time: 03/01/23 4:47 pm Transcribed By: ISMAEL Development Technician Date/Time: 03/01/23 4:44 pm Birads: [facility] 13:13:26 Mammo, Screening, Digital, Bilateral : PROCEDURE: MM Digital Mammo Screening INDICATION: Screening. No known palpable abnormalities. COMPARISON: Dating back to 12/19/2016 TECHNIQUE: Full-field digital CC and MLO 3D tomosynthesis images of both breasts were acquired. Computer-aided detection (CAD) was utilized in the interpretation of this study. DENSITY: The breasts are heterogeneously dense, which may obscure small masses. FINDINGS: No suspicious masses, suspicious microcalcifications, or areas of architectural distortion are seen in either breast to suggest malignancy. IMPRESSION: No mammographic evidence of malignancy. RECOMMENDATION: Annual mammographic screening BI-RADS: 1 (Negative) Lay letter mailed to patient WSN: [id number] Ordering Physician: Francisco Rowley Dictated By: Mainor Lloyd MD Dictated Date/Time: 09/19/24 10:20 pm Reviewed By: Mainor Lloyd MD Signed By: Mainor Lloyd MD Signed Date/Time: 09/19/24 10:20 pm Transcribed By: ISMAEL Development Technician Date/Time: 09/19/24 10:20 pm Birads: [facility] 11:13:30 Xr, Cervical Spine, 4 Or 5 View : Cervical Spine 4 or 5 Views Reason: Cervicalgia COMPARISON: None. FINDINGS: No bone lesions or fractures. Normal odontoid and C1/2 relationship. Straightening of the cervical spine may be due to muscular spasm. Normal alignment. Mild intervertebral disc space narrowing at C4-C5, C5-C6 and C6-C7 with associated osteophyte formation and mild endplate sclerosis.. Minimal right neural foraminal narrowing at C6-7 secondary to mild uncovertebral hypertrophy. No significant narrowing of the left-sided neural foramina. Normal prevertebral soft tissues and clear lung apices. IMPRESSION: Mild chronic degenerative changes in the cervical spine with no acute osseous abnormality. WSN: [id number] Ordering Physician: Francisco Rowley Dictated By: Daniella Nix MD Dictated Date/Time: 10/14/24 10:27 a Reviewed By: Daniella Nix MD Signed By: Daniella Nix MD Signed Date/Time: 10/14/24 10:27 am Transcribed By: ISMAEL Transcribed Date/Time: 10/14/24 10:24 am Patient Class: Outpatient Francisco Rowley MD [address], [place], [address], [facility] 10/14/2024 12:52:34 Problems Name Problem SNOMED Code Status Onset Date Resolution Date Notes Provider Name and Address Organization Details Recorded Time Aminah cota hyperten brendon 60035984 Active Followed by Dr. Licona for nephrolo gy Janet packer, [facility] 0 10:39:01 Insomnia 070216298 Completed 01/28/2023 Francisco Rowley MD [address] [facility] [address], [place], [address] , [facility] 3 14:25:24 Dysfunct ional uterine bleeding Completed 01/28/2023 s/p alblatio n 2020 Francisco Rowley MD [address] [facility] [address], [place], [address] , [facility] 3 14:25:10 Nail changes 013249047 Completed 200709/22/2013 RECORDED 01/05/20 08 4:06PM BY JOSE E GARCIA ON/ADDEN DUM Not Available [facility] 4 15:21:56 Eruption 482144796 Completed 200709/22/2013 RECORDED 01/05/20 08 4:06PM BY JOSE E GARCIA ON/ADDEN DUM Not Available [facility] 4 15:21:57 Adult health examinat ion Completed 200709/22/2013 RECORDED 01/05/20 08 4:06PM BY JOSE E GARCIA ON/ADDEN DUM Not Available [facility] 4 15:21:57 Nail changes 957181994 Completed 200710/19/2013 RECORDED 01/05/20 08 4:06PM BY JOSE E GARCIA ON/ADDEN DUM Not Available [facility] 4 05:45:42 Eruption 868246612 Completed 200710/19/2013 RECORDED 01/05/20 08 4:06PM BY PORTILLO GARCIAATI ON/ADDEN DUM Not Available [facility] 4 05:45:42 Adult health examinat ion Completed 200710/19/2013 RECORDED 01/05/20 08 4:06PM BY PORTILLO GARCIAATI ON/ADDEN DUM Not Available [facility] 4 05:45:42 Anxiety disorder 005178008 Active 2011 Janet packer, [facility] 0 10:39:01 Screenin g for malignan t neoplasm of breast Completed 201109/22/2013 RECORDED 02/13/20 12 9:38AM BY GALE ZURITA MA, ANNOTATI ON/ADDEN DUM Not Available [facility] 4 15:21:56 Screenin g for malignan t neoplasm of cervix Completed 201109/22/2013 RECORDED 02/13/20 12 9:38AM BY GALE ZURITA MA, PORTILLOATI ON/ADDEN DUM JOB Jarvis [facility] 7 13:06:33 Cough 44202120 Completed 201110/03/2016 JOB Jarvis [facility] 7 13:06:49 Periapic al abscess without sinus tract Completed 201109/22/2013 RECORDED 02/13/20 12 9:39AM BY GALE ZURITA MA, ANNOTATI ON/ADDEN DUM Not Available [facility] 4 15:21:56 Infectiv e otitis externa 35753777 Completed 201110/03/2016 JOB Jarvis [facility] 7 13:06:58 Malaise and fatigue 606750420 Completed 201109/22/2013 RECORDED 02/13/20 12 9:39AM BY GALE ZURITA MA ANNOTATI ON/ADDEN DUM Not Available [facility] 4 15:21:56 Hyperlip idemia 40941849 Active 2011 Janet packer, [facility] 0 10:39:01 Obesity 867051969 Active 2011 Janet Courtney null, [facility] 0 10:39:01 Tobacco dependen ce syndrome 89379556 Active 2011 Janet packer, [facility] 0 10:39:01 Screenin g for malignan t neoplasm of breast Completed 201110/19/2013 RECORDED 02/13/20 12 9:38AM BY GALE ZURITA MA, ANNOTATI ON/ADDEN DUM Not Available [facility] 4 05:45:42 Screenin g for malignan t neoplasm of cervix Completed 201110/19/2013 RECORDED 02/13/20 12 9:38AM BY GALE ZURITA MA, ANNOTATI ON/ADDEN DUM JOB Jarvis, [facility] 7 13:06:33 Periapic al abscess without sinus tract Completed 201110/19/2013 RECORDED 02/13/20 12 9:39AM BY GALE ZURITA MA, ANNOTATI ON/ADDEN DUM Not Available [facility] 4 05:45:42 Malaise and fatigue 933790958 Completed 201110/19/2013 RECORDED 02/13/20 12 9:39AM BY GALE ZURITA MA, ANNOTATI ON/ADDEN DUM Not Available [facility] 4 05:45:42 Screenin g for malignan t neoplasm of cervix Completed 201210/03/2016 JOB Jarvis, [facility] 7 13:06:33 Laborato ry procedur e performe d 815839963 Completed 201210/03/2016 RECORDED 02/26/20 13 11:00AM BY CLAUDIA NOBLE, LAB REQ JOB Jarvis, [facility] 7 13:06:21 Fibroade noma of breast 693470465 Completed 201301/28/2023 Francisco Rowley MD [address] [facility] [address], [place], [address] , [facility] 3 14:25:18 Follow-u p encounte r Completed 201310/03/2016 JOB Jarvis, [facility] 7 13:06:41 Moderate recurren t major depressi on 83732347 Active 2019 Janet Courtney null, [facility] 0 10:39:01 Proteinu geovanna 53684441 Completed 202006/17/2020 JOB Calle, [facility] 4 15:54:10 Blood in urine 51187506 Active 2020 JOB Calle, [facility] 4 15:54:10 Hyperten sive disorder 97712086 Active 2020 JOB Calle, [facility] 4 15:54:10 Body mass index 25-29 - overweig ht 654554460 Completed 202201/28/2023 Francisco Rowley MD [address] [facility] [address], [place], [address] , [facility] 3 14:25:39 Overweig ht 107898033 Completed 202201/28/2023 Francisco Rowley MD [address] [facility] [address], [place], [address] , [facility] 3 14:25:36 Mixed hyperlip idemia 578635861 Active 2024 Randall Woodward MD [address] [facility] [address], [place], [address] , [facility] 5 17:21:43 Prediabe pedro 742134694 Active 2024 Francisco Rowley MD [address] [address], [place], [address] , [facility] 5 18:21:27 Notes:Some problems listed i n Documents: #[id number], #[id number], #[id number] could not be added to this patient's chart. Please review these documents and add these problems to the patient's chart manually as needed. Problem Notes None recorded. Procedures Surgical History Date Name Laterality Status Provider Name and Address Organization Details Recorded Time 5 Most Recent Mammogram completed Mirta Nacho [facility] 09/21/2024 11:13:27 5 Mammogram Screening completed Mirta Nacho [facility] 09/21/2024 11:13:16 2 Dilation and Curettage completed Yaquelin Noble [facility] 04/26/2021 15:26:20 2 Date of Last Pap Smear completed Erica Carr [facility] 02/04/2023 11:47:24 1 Joint Injection completed Maximilian King MD [address] [address], [place], [address], [facility] 10/17/2020 10:48:32 7 Mammogram one breast completed Sarai quinn MA [facility] 12/26/2016 10:02:58 LEEP completed Sarai quinn MA [facility] 09/29/2014 10:52:35 Breast Biopsy completed Maximilian King MD [address] [address], [place], [address], [facility] 09/29/2014 11:27:02 Imaging Results None recorded. Procedure Notes None recorded. Medical Equipment None Reported. Allergies Allergen ID Allergen Name Allergen Category Reaction Reaction Severity Criticality Documentation Date Start Date Code Code System Note Provider Name and Address Organization Details Recorded Time 91764 No known allergy (situatio n) Not available Not available Not available Not available 09/11/2023 32534 6003 SNOMED Ibeth Keller [facility] 4 15:53:42 Medications Name Sig Start Date Stop Date Status Note LastModified by Organization Details LastModified Time atorvasta tin 40 mg tablet TAKE 1 TABLET BY MOUTH EVERYDAY AT BEDTIME 2024 active Not Available Not Available Not Avai lable acetamino phen 325 mg tablet TAKE 1 CAPSULE BY MOUTH FOUR TIMES A DAY FOR 3 DAYS, THEN NEEDED FOR PAIN active Not Available Not Available No t Available atorvasta tin 20 mg tablet TAKE 1 TABLET EVERY DAY BY ORAL ROUTE AT BEDTIME FOR 90 DAYS, FOR CHOLESTE ROL. 10/16 completed Not Available Not Available Not Available nicotine 14 mg/24 hr daily transderm al patch Apply 1 patch every day by transder mal route. 05/02 completed Not Available Not Available Not Available meloxicam 15 mg tablet Take 1 tablet every day by oral route for 30 days. 10/17 completed Not Available Not Available Not Available lisinopri l 20 mg tablet Take 1 tablet every day by oral route. 10/17 completed Not Available Not Available Not Available Zithromax Z-Phi 250 mg tablet QD 02/17 completed RECORDED 04/02/19 13 9:37AM BY TARAN ALVARES, MEDICATI ON AUTO-OTIS CTIVATIO N;2PO QD FOR 1 DAY, THEN 1 QD FOR 4 DAYS. Not Available Not Available Not Available penicilli n V potassium 500 mg tablet THREE TIMES A DAY 11/22 completed RECORDED 08/30/19 10 11:22AM BY MAXIMILIAN KING MD, MEDICATI ON AUTO-OTIS CTIVATIO N; Not Available Not Available Not Available metronida zole 500 mg tablet 10/03 completed Not Available Not Available Not Available amlodipin e 5 mg tablet TAKE 1 TABLET BY MOUTH EVERY DAY active Not Available Not Available No t Available Nicotrol 10 mg inhalatio n cartridge INHALE UPTO 10 CARTRIDG ES EVERY DAY BY INHALATI ON ROUTE NEEDED FOR 30 DAYS. 07/15 completed Not Available Not Available Not Available VoSol 2 % ear solution IN EAR EVERY 8 HRS 02/19 completed RECORDED 04/02/19 13 9:37AM BY TARAN ALVARES, MEDICATI ON AUTO-OTIS CTIVATIO N; Not Available Not Available Not Available oxycodone -acetamin ophen 5 mg-325 mg tablet TAKE 1 TABLET EVERY 6 HOURS NEEDED FOR PAIN 04/23 completed Not Available Not Available Not Available amoxicill in 875 mg tablet TAKE 1 TABLET BY MOUTH EVERY 12 HOURS FOR 10 DAYS 01/28 completed Not Available Not Available Not Available ciproflox acin 0.3 % eye drops PLACE 4 DROPS INTO RIGHT EAR TWICE A DAY FOR 7DAYS 10/17 completed Not Available Not Available Not Available amlodipin e 10 mg tablet Take 1 tablet every day by oral route for 30 days. active Not Available Not Available No t Available clotrimaz ole-betam ethasone 1 %-0.05 % topical cream TWO TIMES DAILY 05/12 completed RECORDED 08/10/19 09 11:27AM BY MAXIMILIAN KING MD, MEDICATI ON AUTO-OTIS CTIVATIO N; Not Available Not Available Not Available oxycodone 5 mg capsule TAKE 1 CAPSULE BY MOUTH EVERY 8 HOURS NEEDED FOR PAIN PARTIAL FILL UPON PATIENT REQUEST. 01/28 completed Not Available Not Available Not Available lisinopri l 30 mg tablet TAKE 1 TABLET BY MOUTH 1 TIME EACH DAY. active Not Available Not Available No t Available gabapenti n 300 mg capsule TAKE 1 CAPSULE BY MOUTH EVERYDAY AT BEDTIME 10/17 completed Not Available Not Available Not Available lisinopri l 5 mg tablet Take 1 tablet every day by oral route for 30 days. active Not Available Not Available No t Available ergocalci ferol (vitamin D2) 1,250 mcg (50,000 unit) capsule TAKE 1 CAPSULE (50,000 UNITS TOTAL) BY MOUTH ONCE WEEKLY active Not Available Not Available No t Available lorazepam 1 mg tablet 1 {tbl} every 6 hours by oral route. 02/26 completed Not Available Not Available Not Available ibuprofen 600 mg tablet TAKE 1 TABLET BY MOUTH THREE TIMES A DAY FOR 3 DAYS WITH FOOD, THEN TAKE NEEDED FOR PAIN. active Not Available Not Available No t Available levofloxa patti 500 mg tablet TAKE 1 TABLET BY MOUTH EVERY 24 HOURS FOR 7 DAYS 08/29 completed Not Available Not Available Not Available amoxicill in 875 mg-potass ium clavulana te 125 mg tablet TAKE 1 TABLET EVERY 12 HOURS FOR 1 WEEK. 07/15 completed Not Available Not Available Not Available nicotine 7 mg/24 hr daily transderm al patch Apply 1 patch every day by transder mal route. 05/02 completed Not Available Not Available Not Available ciproflox acin 0.3 %-dexamet hasone 0.1 % ear drops,brian pension INSTILL 4 DROPS INTO AFFECTED EAR(S) TWICE A DAY FOR 7 DAYS active Not Available Not Available No t Available bupropion HCl XL 300 mg 24 hr tablet, extended release TAKE 1 TABLET BY MOUTH EVERY DAY 05/02 completed for smoking Not Available Not Available Not Available chlorhexi dine gluconate 0.12 % mouthwash TAKE 15ML BY MOUTH, SWISH FOR 30 SECONDS THEN SPIT. USE TWICE A DAY. DO NOT SWALLOW 04/23 completed Not Available Not Available Not Available Chantix Continuin g Month Phi 1 mg tablet Take 1 tablet twice a day by oral route. 10/03 completed Not Available Not Available Not Available Chantix Starting Month Box 0.5 mg (11)-1 mg (42) tablets in dose pack Two times per day, as directed 10/03 completed Not Available Not Available Not Available Vitals Date Recorded Body height Provider Name an d Address Organization Details Last Updated DateTime 04/23/2024 163.83 cm Cori Osborne MA [facility] 04/23/2024 15:47:08 Date Recorded Body height Body mass index (BMI) Body weight Oxygen saturation Heart rate Body temperature Systolic And Diastolic Provider Name and Address Organization Details Last Updated DateTime 163.83 cm 30.5 kg/m2 18783.0 3 g 99 % 83 /min 98.2 [degF] 137/84 mm[Hg] Ibeth Keller MA [facility] 5 14:03:52 Date Recorded Systolic And Diastolic Provider Name and Address Organization Details Last Updated DateTime 08/30/2023 136/88 mm[Hg] Brie HE [address] [facility] [address], [place], [address], [facility] 08/30/2023 15:32:45 Date Recorded Body height Body mass index (BMI) Body weight Heart rate Oxygen saturation Body temperature Systolic And Diastolic Provider Name and Address Organization Details Last Updated DateTime 4 163.83 cm 32.1 kg/m2 55504.5 5 g 84 /min 100 % 98.4 [degF] 154/80 mm[Hg] Sarai martins MA [facility] 4 15:14:04 Date Recorded Body height Provider Name an d Address Organization Details Last Updated DateTime 09/11/2023 163.83 cm Ibeth Keller MA [facility] 09/11/2023 15:53:33 Date Recorded Body height Provider Name an d Address Organization Details Last Updated DateTime 10/16/2024 163.83 cm Cori Osborne MA [facility] 10/16/2024 15:52:30 Date Recorded Body height Body mass index (BMI) Body weight Heart rate Oxygen saturation Body temperature Systolic And Diastolic Provider Name and Address Organization Details Last Updated DateTime 3 163.83 cm 32.4 kg/m2 66019.7 4 g 83 /min 98 % 97.9 [degF] 130/87 mm[Hg] Cori Osborne MA [facility] 3 09:16:16 Social History Question Answer Notes LastModified by Organizat ion Details LastModified Time Tobacco Smoking Status Current Every Day Smoker has tried Chantix and nicotine patches in past JOB Liu, [facility] 06/03/2015 09:45:58 Do You Have An Advance Directive? No Declined Information not available 09/29/2014 Is Blood Transfusion Acceptable In An Emergency? Yes Information not available 09/29/2014 What Is Your Level Of Caffeine Consumption? Moderate 1 Serving Of Coffee Daily Information not available 10/17/2020 How Much Tobacco Do You Chew? None Information not available 09/29/2014 What Type Of Diet Are You Following? REGULAR Information not available 09/29/2014 Which Illicit Or Recreational Drugs Have You Used? None Information not available 09/29/2014 Live Alone Or With Others? With Others Roommate Information not available 05/02/2019 Do You Take Precautions To Prevent Distracted Driving? No Information not available 09/29/2014 How Often Do You Need To Have Someone Help You When You Read Instructions, Pamphlets, Or Other Written Material From Your Doctor Or Pharmacy? Never Information not available 06/03/2015 Have You Served In The [employer]? No Information not available 10/03/2016 Have You Or Anyone In Your Household Had Any Of The Following Symptoms In The Last 14 Days: Sore Throat, Cough, Chills, Body Aches For Unknown Reasons, Shortness Of Breath For Unknown Reasons, Loss Of Smell, Loss Of Taste, Fever At Or Greater Than 100 Degrees Fahrenheit? No Information not available 10/17/2020 Are You Or Anyone In Your Household A Health Care Provider Or Emergency Responder? No Information not available 10/17/2020 To The Best Of Your Knowledge Have You Been In Close Proximity To Any Individual Who Tested Positive For COVID-19? No Information not available 10/17/2020 Have You Recently Traveled To A COVID-19 High Risk Area Or Gathering In The Last 10 Days? No Information not available 10/17/2020 What Was The Date Of Your Most Recent Tobacco Screening? 09/11/2023 [email or web address] Information not available 09/11/2023 How Many Children Do You Have? 1 Jorge Information not available 09/29/2014 What Is Your Current Pack Years? 20-29packye ars 8 Pack Years [email or web address] Information not available 07/15/2024 Do You Use Protection During Sex? Always Information not available 09/29/2014 Seat Belts Used Routinely Yes Information not available 09/29/2014 Are You Sexually Active? Yes Information not available 09/29/2014 Smoke Alarm In Home Yes Information not available 09/29/2014 At What Age Did You Start Smoking Tobacco? 18 Information not available 09/29/2014 Are You Passively Exposed To Smoke? Yes Occasionally Information not available 09/29/2014 How Much Tobacco Do You Smoke? 1 PPW 1 Pack Every 2-3 Days Information not available 08/30/2023 Do You Use Sunscreen Routinely? No Information not available 09/29/2014 How Many Years Have You Smoked Tobacco? 25 Information not available 05/02/2019 Sex: Unknown Functional Status Question Answer Note LastModified by Organizat ion Details LastModified Time Do you use any illicit or recreational drugs? No Information not available 10/17/2020 Do you or have you ever used any other forms of tobacco or nicotine? No Information not available 10/17/2020 What is your level of alcohol consumption? None Information not available 01/28/2023 Do you or have you ever used smokeless tobacco? Never used smokeless tobacco Information not available 05/02/2019 Are you currently employed? Yes Information not available 09/29/2014 Are you able to walk independently without assistance or assistive devices? YESWOREST Information not available 10/17/2020 Are you able to care for yourself independently? Yes Information not available 09/29/2014 What is your occupation? Other [employer] Information not available 08/07/2024 Do you or have you ever used e-cigarettes or vape? Never used electronic cigarettes Information not available 05/02/2019 What is your exercise level? None Information not available 09/29/2014 Mental Status None recorded. Family History Relationship Description Onset Age of this Age Resolved Age Notes LastModified by Organization Details LastModified Time Mother Hypertensive disorder [email or web address] s Not available 09/29/2014 10:55:50 Father Hypertensive disorder [email or web address] s Not available 09/29/2014 10:55:50 Maternal Grandmother Diabetes mellitus [email or web address] s Not available 09/29/2014 10:55:50 Maternal Grandfather Diabetes mellitus [email or web address] s Not available 09/29/2014 10:55:50 Maternal Grandfather Carcinoma of prostate [email or web address] s Not available 10/03/2016 13:12:00 Paternal Grandmother Diabetes mellitus [email or web address] s Not available 09/29/2014 10:55:50 Paternal Grandfather Diabetes mellitus [email or web address] s Not available 09/29/2014 10:55:50 Medical History Condition Response Hypertension Y Gynecological History Statement/Question Response Date of Last Pap Smear 04/24/2021 Most Recent Mammogram 09/19/2024 Obstetrics History GPAL:G 0 P 0 0 0 0 Immunizations Vaccine Type Date Status Note Provider Nam e and Address Organization Details Recorded Time Influenza, split virus, quadrivalent, PF [facility] 15:46:44 Influenza, split virus, trivalent, preservative 9 [facility] 10:38:54 COVID-19, mRNA, LNP-S, PF, 30 mcg/0.3 mL dose 1 completed JOB Woods [facility] 08/30/2023 15:04:08 Influenza, split virus, trivalent, preservative 1 completed JOB Russell [facility] 02/04/2023 09:12:05 COVID-19, mRNA, LNP-S, PF, 30 mcg/0.3 mL dose 1 [facility] 15:04:08 Tdap 2 completed Sarai quinn JOB packer, [facility] 08/30/2023 15:04:08 Tdap 7 completed Sarai quinn JOB packer, [facility] 08/30/2023 15:04:08 Influenza, split virus, quadrivalent, PF 1 completed Sarai quinn JOB packer, [facility] 08/30/2023 15:04:08 Influenza, split virus, trivalent, preservative 8 completed Ibeth Keller JOB packer, [facility] 09/11/2023 15:54:10 Past Encounters Encounter ID Performer Location Encounter Start Date Encounter Closed Date Diagnosis/Indication Diagnosis SNOMED-CT Code Diagnosis ICD10 Code Diagnosis IMO Codes Diagnosis Note [id number] [facility] [address] [facility] [place] [address] 07/23/2007 00:00:00 [id number] auto[facility] er[facility] [address] [facility] [place] [address] 09/09/2007 00:00:00 [id number] auto[facility] [facility] [address] [facility] [place] [address] 01/05/2008 00:00:00 [id number] auto[facility] er[facility] [address] [facility] [place] [address] 02/13/2012 00:00:00 [id number] Maximilian King MD Main Office [address] [facility] [address] [place] [address] 05/31/2014 11:11:31 05/31/2014 11:54:09 Essential hypertension 44461463 Tobacco de pendence syndrome 98811293 [id number] Maximilian King MD Main Office [address] [facility] [address] [place] [address] 09/29/2014 10:44:02 09/29/2014 11:52:41 Adult health examination 222028845 Essential hypertension 96495238 Hyperlipidemia 04111251 Insomnia 443899644 [id number] Maximilian King MD Main Office [address] [address] [place] [address] 06/03/2015 09:37:15 06/03/2015 10:37:41 Essential hypertension 32142754 I10 Tobacco de pendence syndrome 87996683 F17.290 Hyperlipidemia 35285597 E78.5 [id number] Maximilian King MD Main Office [address] [address] [place] [address] 10/03/2016 12:59:43 10/03/2016 14:12:03 Adult health examination 915039831 Z00.00 Fibroadeno ma of breast 356817848 D24.9 Essential hypertension 64769565 I[address] Ordonez Tobacco de pendence syndrome 09064291 F17.290 Hyperlipidemia 32767034 E78.5 Pain of mu ltiple joints 07338838 M25.50 [id number] Shameka Ellsworth PA-C Main Office [address] [address] [place] [address] 10/12/2016 11:35:23 10/12/2016 12:01:30 Viral gastroenteritis 102898333 A08.4 Pt. reassured. Will drink Gatorade and blend diet as tolerated. Can use Imodium over the week end only if diarrhea continues. [id number] Maximilian King MD Main Office [address] [address] [place] [address] 05/02/2019 09:55:04 05/02/2019 11:45:51 Tobacco dependence syndrome 77930937 F17.290 Essential hypertension 29004669 I10 Adult [facility] th examination 129010921 Z00.00 Screening for malignant neoplasm of breast 728101751 Z12.39 Lumbar radiculopathy 128 680750 M54.16 L5 distributi on on right Anxiety disorder 8713937 06 F41.9 Moderate r ecurrent major depression 17526506 F33.1 will seek counseling with EAP. Follow up her to review options for SSRI initiation . [id number] Maximilian King MD Main Office [address] [address] [place] [address] 10/17/2020 09:34:55 10/17/2020 10:53:08 Adult health examination 890450969 Z00.00 Essential hypertension 07162012 I10 Stable on CCB. Followed by renal (Dicampli) Screening for malignant neoplasm of breast 562009313 Z12.39 Hepatitis C screening 41 0577643 Z11.59 Moderate r ecurrent major depression 00280502 F33.1 will seek counseling with EAP. Follow up her to review options for SSRI initiation . Anxiety disorder 6950413 F41.9 Tobacco de pendence syndrome 82306782 F17.290 Bursitis of shoulder 239 098116 M75.50 [id number] Francisco Rowley MD Main Office [address] [facility] [address] [place] [address] 01/28/2023 14:12:51 01/28/2023 14:52:00 Adult health examination 948376342 Z00.00 Patient was counseled on healthy diet, exercise and nutrition due to Body mass index is 31.9 kg/m . Last Colonoscop y:Date:Res ult:Plan: order placed Last Mammogram: Date: 02/12/21Res ult: Birad-2Pla n: due, order placed Last Pap smearDate: 12/29/18Re sult: Neg for PATTI, EZ absent, no hpv donePlan: due, advised follow up with [facility] EQUIPMENT REPAIR[facility] Bone density scanDate:R esult:Plan : not due, but can consider sooner of still smoking, Vaccines:T dAP: due, script givenZoste r rec: not tmcTRJ61: Still smoking, script givenInflu karma:Covid : encouraged updated dose. Routine labs today, with STI workup Immunizati on status reviewed. Will screen based on risk factors. Regular dental and ophtho care advised as well as seat belt and sunscreen use. Distracted driving discussed. Medication reconciled . Advance directives discussed. Screening for malignant neoplasm of breast 083733150 Z12.39 Screening for malignant neoplasm of colon 379607196 Z12.11 Administra tion of pneumococcal vaccine 79421797 Z23 Fatigue 38276613 R53.83 Z00.00 Hyperlipidemia 51733373 E78.5 Z00.00 Essential hypertension 25713044 I10 Tobacco de pendence syndrome 03515689 F17.290 Vitamin D deficiency 347 91657 E55.9 Moderate r ecurrent major depression 06026671 F33.1 Body mass index 30+ - obesity 228386677 Z68.30 E66.9 - Diet and exercise discussed- Encouraged to loose weight. Goal set to loose weight at 1-1.5 Lbs/week- Avoid starchy and fatty food- Encouraged use of green vegetables and fruits Obesity 990177672 E66.9 Otitis ext everton of left ear 9282276530 189521 H60.92 noted on exam then she admited she is sx. [id number] TARAN HE Main Office [address] [facility] [address] [facility] [place] [address] 02/04/2023 09:10:45 02/04/2023 09:41:20 Otitis externa of left ear 3039448471 915563 H60.92 -pt is on the last day of her x7 day ciprofloxa patti ear drop course-Den ies of having any ear pain, discharge, or difficulty in hearing-PE revealed white discharge in the left ear canal. TM intact- WNL-will start pt on an oral antibiotic as today is her last day with the ear drops-disc ussed various barrier methods to help prevent any water getting in the ear from showers- such as using OTC ear barriers or ear plugs [id number] Randall Woodward MD Main Office [address] [facility] [address] [facility] [place] [address] 08/30/2023 15:00:32 08/30/2023 15:42:01 Pre-surgery evaluation 523481565 Z01.818 Pre-operat parker medical clearance for dental implants with IV sedation/a nesthesia on 09/24/[address] Sydnie Singleton at [facility]. Ordered CBC w/ diff, BMP, and PT/PTT.-ek g; NSR, no ST changes No medical contraindi cations to proposed procedure. Estes Perioperat parker Cardiac Risk was calculated and the risk for perioperat parker [place] is 0.1%. May proceed to surgery as planned. Essential hypertension 42217754 I10 follows [address] Dr[address] Matthews amlodipine and lisinopril in office BP of 156/80 then 136/88 [id number] Randall Woodward MD [facility] [address] [facility] [address] [place] [address] 04/23/2024 14:41:48 04/23/2024 16:21:09 Tobacco dependence syndrome 95374386 F17.200 Mixed hyperlipidemia 267 282046 E78.2 She has a relatively low cholestero l but has multiple risk factors giving her a calculated risk of 32.3%. She has HTN, a strong fhx of heart disease, she's a smoker and has a low HDL. [id number] Francisco Rowley MD Main Office [address] [facility] [address] [place] [address] 07/15/2024 13:56:49 07/15/2024 14:54:17 Adult health examination 575051548 Z00.00 Patient was counseled on healthy diet, exercise and nutrition due to Body mass index is 30.5 kg/m . Last Colonoscop y:Date:Res ult:Plan: order placed again Last Mammogram: Date: 03/01/23Re sult: Birad-1Pla n: due, order placed Last Pap smearDate: 04/24/21Res ult: Neg for PATTI, EZ present, no hpv donePlan: due, advised follow up with [facility]PA[facility] Bone density scanDate:R esult:Plan : not due, but can consider sooner of still smoking, Vaccines:T dAP: 02/07/17Zo ster rec: not [id number]: Still smoking, script givenInflu karma: yearly flu encouraged .Covid: encouraged updated dose. Routine labs today Immunizati on status reviewed. Will screen based on risk factors. Regular dental and ophtho care advised as well as seat belt and sunscreen use. Distracted driving discussed. Medication reconciled . Advance directives discussed. Screening for malignant neoplasm of breast 839914033 Z12.39 Screening for malignant neoplasm of colon 065450393 Z12.11 Administra tion of pneumococcal vaccine 58759723 Z23 Hyperlipidemia 95414112 E78.5 Z00.00 Essential hypertension 75056324 I10 Follows renal. Tobacco de pendence syndrome 87500187 F17.290 encouraged zyn as inhalant no longer manufactur ed.Cessati on discussed 6 cig/day. Body mass index 30+ - obesity 190465819 Z68.30 E66.9 - Diet and exercise discussed- Encouraged to loose weight. Goal set to loose weight at 1-1.5 Lbs/week- Avoid starchy and fatty food- Encouraged use of green vegetables and fruits Obesity 871243769 E66.9 Moderate r ecurrent major depression 69333478 F33.1 Option discussed, does not want med yet, open for therapy resources provided including psychology today. mind fullness also encouraged .Denies thoughts of self harm or harming others. Prediabetes 755746513 R7 3.03 175690 Leukocytosis 616014018 D 72.829 517028 Fatigue 72485297 R53.83 67589043 Neck pain 04463352 M54.2 No red flag sx but notes right arm tingling will get neck xray follow up 3 mo.ED red flag discussed. Modified poppy neg. [id number] Francisco Rowley MD Main Office [address] [place] [address] 10/16/2024 15:48:38 10/16/2024 16:20:24 Moderate recurrent major depression 78094018 F33.1 37146 Neck pain 66993998 M54.2 93802 Anxiety disorder 2740336 06 F41.9 Paresthesia 58590469 R20 .2 64812 Acute otitis externa 302 35582 H60.312 80014155 Mixed hyperlipidemia 267 371405 E78.5 Z00.00 Neuropathy 227105149 G62 .9 Tobacco de pendence syndrome 77484767 F17.290 encouraged zyn as inhalant no longer manufactur ed.Cessati on discussed 6 cig/day. Health Concerns Section Related Observation LastModified by Organization Detai ls LastModified Time None Recorded Concern Status LastModified by Organization Details LastModified Time None Recorded Advance Directives Directive N: declined Payers Insurance Date Sequence Insurance Name Policy Number Policy Nicholas Covered Member ID Nicholas Member ID Guarantor Name 06/25/2019 1 *SELF PAY* An alden Romero 08/30/2023 1 [place] [facility] [employer] | [employer] [place] [id number] Muriel Romero [id number] Muriel Romero 08/30/2023 1 [employer] (POS) [id number] Muriel Romero [id number] Muriel Romero 08/30/2023 1 [place] [facility] [id number] Muriel Romero [id number] Muriel Romero 01/03/2025 1 [facility] ([facility] [id number] Muriel Romero [id number] Muriel Romero 08/30/2023 1 [facility] Muriel Romero [id number] Muriel Romero Notes Date Note Type Note Provider Name and Address Organization Details Recorded Time 3 text/html ROS as noted in the HPI Muriel presents for f/u on otitis externa of the left ear. Pt was seen on 01/28 by CK. Treated for otitis externa with ciprofloxacin ear drops. Pt is on her last day of the antibiotic ear drops. Reports that her symptoms of ear discharge and difficulty in hearing improved over the antibiotic course. Denies of any ear pain, changes in hearing, or discharge in today's visit. Discussed with CK the possibility of an oral antibiotic and/or the need for ENT referral if infection reoccurs. Denies of any other symptoms. Francisco Rowley MD [address] [facility] [address], [place], [address], [facility] 02/05/2023 12:30:21 4 text/html ROS as noted in the HPI Muriel is a 48yr old F with PMHx of HTN,presents for pre-operative medical clearance for dental implants with IV sedation/anesthesia on 09/24/[address] Sydnie Singleton at [facility] dental [facility]plant [facility]. Denies any acute complaints at this time. Denies allergies, and has tolerated anesthesia in the past without complications. The patient does not follow w/ Cardiology and notes that she can walk multiple blocks and has no limitations with going up multiple flights of stairs before becoming symptomatic METS score ~ > 4. The patient currently denies chest pain, shortness of breath, palpitations, fever, chills, and nausea/vomiting. TARAN HE [address], [place], [address], [facility] 08/30/2023 16:31:52 5 text/html HyperlipidemiaReported by PatientHPIFor type of hyperlipidemia, patient reportscombined. For duration, patient reportsnew onset. For risk factors, patient reportspositive family history of premature arteriosclerotic cardiovascular disease,hypertension,smokin g (she has quit multiple times in the past and would like to try again.),obesity, andlow hdl level. For current therapy, patient reportslast cholesterol level: (208),last ldl level: (128),last triglyceride level: (295), andlast hdl level: (27)(her 10-year risk of heart disease or stroke calculates to 32.3%). For complications, patient reportsno coronary artery disease,no peripheral artery disease, andno cardiovascular disease.Labs were ordered by Dr Ordonez, residential property consultant, who has been following her for years for chronic kidney disease.ROS as noted in the HPI She is a smoking since she was a teenager and has quit multiple times in the past. She has used wellbutrin, chantix, nicotine patch and nicotine gum. These have been helpful but she goes back to smoking. Randall Woodward MD [address] [address], [place], [address], [facility] 04/23/2024 17:27:08 5 text/html Generic HPI TemplateReported by Patient Here for wellness visit. Reviewed chronic medications and medical problems. Discussed screening guidelines as well. Francisco Rowley MD [address] [address], [place], [address], [facility] 07/15/2024 14:49:33 5 text/html Musculoskeletal PainReported by PatientHPIFor quality, patient reportstingling(burning numbness.). For severity, patient reportsworsening. For associated symptoms, patient reportsweak limbsandtinglingbut reportsno fever,no numbness of the legs/feet, andon incontinence. For location, patient reportspain is not radiating,bilateral neck,bilateral shoulder,bilateral arm,bilateral elbow,bilateral wrist, andbilateral hand. For duration, patient reportspresent for >12 months. For timing, patient reportsintermittent. For alleviating factors, patient reportsrelieved by changing position. For context, (driving.). EaracheReported by PatientHPIFor location, patient reportsleft. For severity, patient reportsworsening. For context, patient reportsexposure to second hand smokebut reportsno sick contacts,no recent swimming/water in ear,no head trauma,not grinding teeth, andno recent air travel. For associated symptoms, patient reportsdischarge from the earsbut reportsno hearing loss,no nose/sinus problems,no popping noise in the ears, andno ringing in the ears. For quality, patient reportsaching. For duration, patient reportssymptoms lasting over 2 weeks. For modifying factors, patient reportsdoes not hurt to lie on, or pull on earanddoes not hurt to chew.ROS as noted in the HPI The patient was originally scheduled for a visit to discuss bilateral upper-extremity paresthesia extending to the fingertips and mental health concerns. She arrived 10 minutes late, which per office policy would be a no-show; however, she requested to be seen for ear concerns. She was informed that today s visit would be limited to ear evaluation, and that other concerns would require follow-up appointments. A few weeks after her recent physical exam, she developed ear symptoms. She has a history of recurrent otitis externa with similar presentations in the past. Mental health was discussed briefly. She is practicing mindfulness, has not engaged in psychotherapy (recommended), and is not interested in medication. She denies suicidal or homicidal ideation. Follow-up for mental health planned in 2 months. Regarding paresthesia, she reports numbness, tingling, and burning in both arms to the fingertips. Prior cervical spine X-ray showed degenerative changes. Labs reviewed today include cholesterol not at goal and mildly elevated magnesium. She consumes large amounts of pumpkin seeds, which may contribute to magnesium imbalance. She continues to smoke and acknowledges this likely worsens recurrent otitis externa and contributes to leukocytosis. Smoking cessation discussed; she will contact when ready to quit. Francisco Rowley MD [address] [address], [place], [phone], [facility] 10/16/2024 17:06:26 OBGyn Episode No OBEpisode recorded."
--- OUTSIDE RECORDS SUMMARY | 2025-01-29 14:46 | XMS_ITS ---
Author Name [facility] Organization Unknown Care Team Organization Name Specialty Phone Email Start Date End Da te [facility] 01/16/2022 10/28/2023
--- OUTSIDE RECORDS SUMMARY | 2025-01-29 14:46 | XMS_ITS | Encounter Summary ---
Author Organization [facility] Address [address] [facility] [address] [place] [address] Phone Care Team Providers Care Hand Rug Braider Name Role Phone Carolyn Monroy MD Primary Care Provider [phone] Encounter Details Date Type Department Care Team ([facility] st Contact Info) Description 03/29/2022 Telephone [facility] [address] [facility] [address] [place] [phone] Thomas Valles MD [address] [facility] [address] [place] [phone] Social History Tobacco Use Types Packs/Day Years Used Date Smoking Tobacco: Every Day Cigarettes Smokeless Tobacco: Never Alcohol Use Standard Drinks/Week Comments Yes 0 (1 standard drink = 0.6 oz pure alcohol) Alcoholic Drinks/day: Occasional social drink Comments Unknown Sex and Gender Information Value Date Recorded Sex Assigned at Not on file Legal Sex Female 5:10 PM EST Gender Identity Not on file Sexual Orientation Not on file documented as of this encounter Miscellaneous Notes * Telephone Encounter - Katja Sandoval - 03/29/2022 9:12 AM EST Pt called back, she no longer needs this done. She spoke with her pharmacy and they already have the neccesary prescriptions to last her for the next 3 months. Please disregard * Telephone Encounter - Katja Sandoval - 03/29/2022 8:47 AM EST Pt called she will be switching jobs and will not have insurance for the next 3 months. She would like to know if she can have 90 day refills on her vit d, lisinopril and amlodipine just until she able to get her new insurance. Her last day at work is 04/04/21. Please advise Thank you documented in this encounter Plan of Treatment Upcoming Encounters Date Type Department Care Team (Late st Contact Info) Description 04/22/2025 8:20 AM EST Office Visit [facility] [address] [facility] [address] [place] [address] Thomas Valles MD [address] [facility] [facility] [address] [place] [address] documented as of this encounter Visit Diagnoses Not on filedocumented in this encounter Care Teams Hand Rug Braider Relationship Specialty Start Date End Date Carolyn Monroy MD [address] [facility] [address] [place] [phone] PCP - General Family Medicine 02/26/23 documented as of this encounter
--- OUTSIDE RECORDS SUMMARY | 2025-01-29 14:46 | XMS_ITS | Encounter Summary ---
Author Organization [facility] Address [id number] [place] [phone] Care Team Providers Care Cardiac Cath Lab Radiology Technologist Name Role Phone Maximilian King MD Primary Care Provider [phone] Encounter Details Date Type Department Care Team (Latest Contact Info) Description 07/28/2024 Lab Requisition [facility] [address] [place] [address] Cole Phillips MD [address] [address] Encounter for gynecological examination (general) (routine) without abnormal findings Social History Tobacco Use Types Packs/Day Years Used Date Smoking Tobacco: Never Assessed Comments Unknown Sex and Gender Information Value Date Recorded Sex Assigned at Not on file Legal Sex Female 9:37 PM EDT Gender Identity Not on file Sexual Orientation Not on file documented as of this encounter Plan of Treatment Not on file documented as of this encounter Procedures Procedure Name Priority Date/Time Associated Diagnosis Comments PAP SMEAR Routine 2024 3:53 PM EDT Encounter for gynecological examination (general) (routine) without abnormal findings documented in this encounter Results * (ABNORMAL) Pap smear (2024 3:53 PM EDT) Interpretation Low grade squamous intraepithelial lesion(A) 2024 3:53 PM EDT [facility] General Categorization Epithelial cell abnormality, see interpretation 2024 3:53 PM EDT [facility] Specimen Adequacy Satisfactory for evaluation, endocervical/narayan sformation zone component present 2024 3:53 PM EDT [facility] Pap Methodology Liquid Based Pap Test 2024 3:53 PM EDT [facility] Disclaimer The Pap test is a screening test which carries an inherent false negative rate. These test results should be correlated with the patient's clinical findings and history. This Pap test was processed using an automated screening system. Technical cytopathology services provided by [facility], at [address] [place] [address] (CLIA # [id number]/Sandra Bee MD, [employer].) 2024 3:53 PM EDT [facility] Console Pap Interpretation Reported 2024 3:53 PM EDT [facility] Brushing/Spatula Cervix uteri structure / Unknown 07/28/2024 7:50 AM EDT us Cole Phillips MD LAB CYTOLOGY ORDERABLES Final Result [facility] [address] [place] [address], documented in this encounter Visit Diagnoses Diagnosis Encounter for gynecological examination (general) (routine) without abnormal findings documented in this encounter Care Teams Cardiac Cath Lab Radiology Technologist Relationship Specialty Start Date End Date Maximilian King MD [address] [facility] [address] [place] [address] PCP - General 01/25/14 documented as of this encounter
--- OUTSIDE RECORDS SUMMARY | 2025-01-29 14:46 | XMS_ITS | Encounter Summary ---
Author Organization [facility] Address [address] [facility] [address] [address] Phone Care Team Providers Care Business Continuity Manager Name Role Phone Carolyn Monroy MD Primary Care Provider [phone] Reason for Visit * Reason Comments Med Refill Encounter Details Date Type Department Care Team (Late st Contact Info) Description 07/01/2021 Refill [facility] [address] [facility] [phone] Thomas Valles MD [address] [phone] Social History Tobacco Use Types Packs/Day Years [...] as of this encounter Plan of Treatment Upcoming Encounters Date Type Department Care Team (Late st Contact Info) Description 04/22/2025 8:20 AM EST Office Visit [facility] [address] [phone] Thomas Valles MD [address] [phone] documented as of this encounter Visit Diagnoses Not on filedocumented in this encounter Care Teams Business Continuity Manager Relationship Specialty Start Date End Date Carolyn Monroy MD [address] [phone] PCP - General Family Medicine 02/26/23 documented as of this encounter
--- OUTSIDE RECORDS SUMMARY | 2025-01-29 14:46 | XMS_ITS | Clinical Summary ---
Author Organization [facility] Address [address] [place] [id number] Care Team Providers Care Hand Lens Polisher Name Role Phone Unavailable Primary Care Provider Unavailabl e Medications No known medications Immunizations Name Administration Dates Next Due Adacel (Tdap) 01/31/2022 Covid-19 (Pfizer) Ready To Use 07/20/2021,2021 Social History Tobacco Use Types Packs/Day Years Used Date Smoking Tobacco: Never Assessed Sex and Gender Information Value Date Recorded Sex Assigned at Female 07/20/2021 4:39 PM EDT Gender Identity Not on file Sexual Orientation Not on file Job Start Date Occupation Industry Not on file Not on file Not on file Last Filed Vital Signs Vital Sign Reading Time Taken Comments Blood Pressure 136/85 01/31/2022 1:45 AM EST Pulse 76 01/31/2022 1:45 AM EST Temperature 36.9 C (98.4 F) 01/31/2022 1:45 AM EST Respiratory Rate 18 01/31/2022 1:45 AM EST Oxygen Saturation 100% 01/31/2022 1:45 AM EST Inhaled Oxygen Concentration - - Weight - - Height - - Body Mass Index - - Plan of Treatment Health Maintenance Due Date Last Done Comments Hepatitis B Vaccines (1 of 3 - 3-dose series) 1977 Depression Screening 1989 Preventative Health Evaluation 08/05/1995 Cervical Cancer Screening (Pap Smear) 1998 Colon Cancer Screening (Colonoscopy) 2022 COVID-19 Vaccine ( season) 2024 07/20/2021, 07/20/2021, 10/11/2020 Influenza Vaccine (#1) 2024 , 01/09/2019, 01/21/2018, Additional history exists DTap / Tdap / Td (3 - Td or Tdap) 02/01/2032 01/31/2022, 01/10/2012 Hepatitis C Screening Completed 01/31/2022 Pneumococcal Vaccine Aged Out No long er eligible based on patient's age to complete this topic RSV Ped < 20 months Aged Out No longe r eligible based on patient's age to complete this topic
--- OUTSIDE RECORDS SUMMARY | 2025-01-29 14:47 | XMS_ITS | Clinical Summary ---
Author Organization [facility] [address] [place] [address] [place] [phone] Phone Care Team Providers Care Merchandise Flow Team Leader Name Role Phone Maximilian King MD Primary Care Provider [phone] Social History Tobacco Use Types Packs/Day Years Used Date Smoking Tobacco: Never Assessed Comments Unknown Sex and Gender Information Value Date Recorded Sex Assigned at Not on file Legal Sex Female 9:37 PM EDT Gender Identity Not on file Sexual Orientation Not on file Obstetrics History Plan of Treatment Health Maintenance Due Date Last Done Comments Breast Cancer Screening 1977 Colorectal Cancer Screening: Colonoscopy 1977 Hepatitis B Vaccines (1 of 3 - 19+ 3-dose series) 1996 HIV Screening 07/28/2021 Social Influencers of Health Screening 07/28/2021 Depression Screening 03/11/2024 COVID-19 Vaccine (2 - 2024-2 6 season) 2024 07/20/2021 Influenza Vaccine (#1) 2024 Cervical Cancer Screening: P ap Smear 08/05/2027 2024 DTaP,Tdap,and Td Vaccines (2 - Td or Tdap) 02/01/2032 01/31/2022 RSV Immunization Adult Patie nts (1 - 1-dose 75+ series) 2052 Hepatitis C Screening Completed 01/31/2022 HIB Vaccines Aged Out No longer eligi ble based on patient's age to complete this topic HPV Vaccines Aged Out No longer eligi ble based on patient's age to complete this topic Hepatitis A Vaccines Aged Out No long er eligible based on patient's age to complete this topic IPV Vaccines Aged Out No longer eligi ble based on patient's age to complete this topic MMR Vaccines Aged Out No longer eligi ble based on patient's age to complete this topic Meningococcal ACWY Vaccine Aged Out N o longer eligible based on patient's age to complete this topic Meningococcal B Vaccine Aged Out No l onger eligible based on patient's age to complete this topic Pneumococcal Vaccine: Pediat rics (0 to 5 Years) and At-Risk Patients (6 to 49 Years) Aged Out No longer eligi ble based on patient's age to complete this topic RSV Immunization Patients Un frida 20 months Aged Out No longer eligible b ased on patient's age to complete this topic Varicella Vaccines Aged Out No longer eligible based on patient's age to complete this topic Procedures Procedure Name Priority Date/Time Associated Diagnosis Comments PAP SMEAR Routine 2024 3:53 PM EDT Encounter for gynecological examination (general) (routine) without abnormal findings from Last 3 Months or Most Recently Relevant to Health Maintenance Results * (ABNORMAL) Pap smear (2024 3:53 PM EDT) Interpretation Low grade squamous intraepithelial lesion(A) 2024 3:53 PM EDT [facility] General Categorization Epithelial cell abnormality, see interpretation 2024 3:53 PM T [facility] Specimen Adequacy Satisfactory for evaluation, endocervical/narayan sformation zone component present 2024 3:53 PM EDT [facility] Pap Methodology Liquid Based Pap Test 2024 3:53 PM EDT [facility] Disclaimer The Pap test is a screening test which carries an inherent false negative rate. These test results should be correlated with the patient's clinical findings and history. This Pap test was processed using an automated screening system. Technical cytopathology services provided by [facility], at [address] [place] [address], [place] [address] (CLIA # [id number]/Sandra Bee MD, [employer].) 2024 3:53 PM EDT [facility] Console Pap Interpretation Reported 2024 3:53 PM EDT [facility] Brushing/Spatula Cervix uteri structure / Unknown 07/28/2024 7:50 AM EDT us Cole Phillips MD LAB CYTOLOGY ORDERABLES Final Result [facility] [address] [place] [address], from Last 3 Months or Most Recently Relevant to Health Maintenance Insurance [facility] Care Teams Merchandise Flow Team Leader Relationship Specialty Start Date End Date Maximilian King MD [address] [facility] [address] [place] [address] PCP - General 01/25/14
--- OUTSIDE RECORDS SUMMARY | 2025-01-29 14:47 | XMS_ITS | Clinical Summary ---
Author Organization [facility] Address [address] [phone] Phone Care Team Providers Care Physiotherapy Practice Manager Name Role Phone Carolyn Monroy MD Primary Care Provider [phone] Allergies No known active allergies Medications ergocalciferol 1.25 MG (93301 UT) capsule TAKE 1 CAPSULE (50,000 UNITS TOTAL) BY MOUTH ONCE WEEKLY 12 capsule 4 12/09/2023 Active amLODIPine (NORVASC) 5 MG tablet TAKE 1 TABLET BY MOUTH EVERY DAY 90 tablet 3 09/27/2024 Active lisinopril (PRINIVIL,ZESTR IL) 30 MG tablet TAKE 1 TABLET BY MOUTH 1 TIME EACH DAY. 90 tablet 3 12/30/2024 Active Active Problems Problem Noted Date Diagnosed Date Stage 3a chronic kidney disease 06/20/2020 Blood in urine 06/17/2020 Hypertension 06/17/2020 Proteinuria 06/17/2020 Resolved Problems Problem Noted Date Diagnosed Date Resolved Date Tobacco use disorder, modera te, not otherwise specified 06/20/2020 06/15/2021 Encounters Date Type Department Care Team Description 12/30/2024 Refill [facility] [address] [phone] Thomas Valles MD from Last 3 Months Immunizations Immunization Administration Dates Next Due Influenza TIV (IM) 01/09/2019,01/21/2018 Influenza, Quadrivalent, Preservative Free 01/20 Tdap 01/10/2012 Family History Medical History Relation Comments Hypertension Father Diabetes Mother Heart disease Mother Maternal Grandfa ther Stroke Mother Maternal Grandfa ther Relation Status Comments Father Alive Mother Alive Social History Tobacco Use Types Packs/Day Years Used Date Smoking Tobacco: Every Day Cigarettes Smokeless Tobacco: Never Tobacco Cessation:Ready to Q uit: Not Asked; Counseling Given: Not Answered Alcohol Use Standard Drinks/Week Comments Yes 0 (1 standard drink = 0.6 oz pure alcohol) Alcoholic Drinks/day: Occasional social drink Comments Unknown Sex and Gender Information Value Date Recorded Sex Assigned at Not on file Legal Sex Female 5:10 PM EST Gender Identity Not on file Sexual Orientation Not on file Last Filed Vital Signs Vital Sign Reading Time Taken Comments Blood Pressure 128/78 04/22/2024 8:36 AM EST Pulse 82 04/22/2024 8:36 AM EST Temperature - - Respiratory Rate - - Oxygen Saturation 99% 04/22/2024 8:36 AM EST Inhaled Oxygen Concentration - - Weight 82.7 kg (182 lb 6.4 oz) 04/22/2024 8:36 A M EST Height 162.6 cm (5' 4 ) 06/20/2020 12:00 PM EDT Body Mass Index 31.31 06/20/2020 12:00 PM EDT Plan of Treatment Upcoming Encounters Date Type Department Care Team (Late st Contact Info) Description 04/22/2025 8:20 AM EST Office Visit [facility] [address] [phone] Thomas Valles MD [address] [phone] Health Maintenance Due Date Last Done Comments Hepatitis B Vaccine (1 of 3 - 19+ 3-dose series) 1996 Pneumococcal Vaccine: Peds ( 0 to 5 Years) and At-Risk Patients (6 to 49 Years) (1 of 2 - PCV) 1996 Influenza Vaccine (#1) 2024 , 01/09/2019, 01/21/2018, Additional history exists Insurance [facility] Care Teams Physiotherapy Practice Manager Relationship Specialty Start Date End Date Carolyn Monroy MD [address] [phone] PCP - General Family Medicine 02/26/23
== END 2025-01-29 14:24 | disposition home or self-care (01) ==
LOC: HO.NEURO 14:23
PROVIDERS: PCP Family Medicine; Visit Provider Family Medicine
DX: R20.2 Paresthesia of skin (principal)
CPT/HCPCS: 95886; 95911

== ENCOUNTER → 2025-01-29 14:26 | Outpatient (BNV) | payer OTHER, SELFPAY | PROVIDERS: PCP Family Medicine; Visit Provider Physical Medicine & Rehabilitation | DX: G56.03 Carpal tunnel syndrome, bilateral upper limbs (principal) | CPT/HCPCS: 95886; 95911 ==